=== PATIENT | male | born 1960 | race Caucasian/White ===

== ENCOUNTER 2020-06-04 11:47 | Emergency (ER) | payer SELFPAY ==
[~2020-06-04] VITALS: Ht 172.7 cm; Wt 70.3 kg
[2020-06-04 13:34] LABS: BASOPHILS ABSOLUTE AUTO 0.03 K/mm3 (0.00-0.23); BASOPHILS PERCENT AUTO 0 % (0-2); EOSINOPHILS PERCENT AUTO 0 % (0-6); Hematocrit 42.1 % (37.0-53.0); Hemoglobin 14.2 g/dL (13.5-17.5); IMMATURE GRAN ABSOLUTE AUTO 0.03 K/mm3 (0.00-0.10); IMMATURE GRAN PERCENT AUTO 0 % (0-1); LYMPHOCYTES ABSOLUTE AUTO 0.59 K/mm3 (0.84-5.20); LYMPHOCYTES PERCENT AUTO 7 % (21-46); MONOCYTES ABSOLUTE AUTO 0.85 K/mm3 (0.16-1.47); MONOCYTES PERCENT AUTO 10 % (4-13); Mean Corpuscular HGB 33.5 pg (26.0-34.0); Mean Corpuscular HGB Conc 33.7 g/dL (31.5-36.5); Mean Corpuscular Volume 99 fL (80-100); Mean Platelet Volume 9.7 fL (9.1-12.4); NEUTROPHILS ABSOLUTE AUTO 7.41 K/mm3 (1.96-9.15); NEUTROPHILS PERCENT AUTO 83 % (41-73); Platelet Count 170 K/mm3 (150-400); RDW Standard Deviation 51.1 fL (35.1-46.3); Red Blood Cell Count 4.24 M/mm3 (4.30-5.90); White Blood Cell Count 8.91 K/mm3 (4.00-11.30)
[2020-06-04 13:59] LABS: Alanine Aminotransfer (ALT/SGP 125 U/L (12-78); Albumin, Blood 3.4 g/dL (3.4-5.0); Albumin/Globulin Ratio 0.8 (0.8-1.8); Alk Phos 165 U/L (50-136); Anion Gap 14 mmol/L (6-16); Aspartate Aminotrans (AST/SGOT 132 U/L (12-37); Bilirubin, Total 1.1 mg/dL (0.1-1.0); Blood Urea Nitrogen 10 mg/dL (8-24); CO2, Blood 23 mmol/L (21-32); Calcium, Blood 9.3 mg/dL (8.5-10.1); Chloride, Blood 93 mmol/L (98-108); Creatinine, Blood 0.59 mg/dL (0.60-1.20); Glomerular Filtration Rate >60 (60-); Glucose, Blood 98 mg/dL (70-99); Potassium, Blood 4.1 mmol/L (3.5-5.5); Sodium, Blood 130 mmol/L (136-145); Total Protein, Blood 7.4 g/dL (6.4-8.2)
[2020-06-04] MEDS ORDERED: Norco 5-325 Ta1 EACH PO (21:33)
[2020-06-04] MEDS ORDERED: ONDA4ODT MM (21:33)
[2020-06-04] MEDS ORDERED: Colace250 MG PO (21:50)
[2020-06-04 21:59] LABS: Source, Urine Voided
[2020-06-04 22:05] LABS: Appearance, Urine Clear (Clear); Blood, Urine 1+ (Neg); Color, Urine Amber (P-Yellow); Glucose Qualitative, Urine Neg (Neg); Ketones, Urine 4+ (Neg); Leukocyte Esterase, Urine 1+ (Neg); Nitrite, Urine Neg (Neg); Protein, Urine 2+ (Neg); Specific Gravity, Urine 1.025 (1.003-1.022); Urobilinogen, Urine 2+ (Normal)
[2020-06-04 22:12] LABS: Bilirubin, Urine 1+ (Neg)
[2020-06-04 22:14] LABS: Bacteria Few /hpf; Red Blood Cells, Urine 0-2 /hpf (0-2); Squamous Epithelial Cells Rare /hpf (Few)
[2020-06-04 22:15] LABS: Mucus Mod (0-Heavy)
== END 2020-06-04 22:16 | disposition home or self-care (01) ==
LOC: ER 11:47
PROVIDERS: Emergency Medicine
DX: K85.20 Alcohol induced acute pancreatitis without necrosis or infection (principal); R74.01 Elevation of levels of liver transaminase levels; F17.210 Nicotine dependence, cigarettes, uncomplicated
CPT/HCPCS: 36415; 76705; 80053; 81001; 83615; 83690; 85025; 87086; 93005; 93010; 96361; 96374; 96375; 99284-25; A9270-GY; J2270; J2405; J7120

== ENCOUNTER 2021-06-27 07:57 | Emergency (ER) | payer SELFPAY ==
[~2021-06-27] VITALS: Ht 172.7 cm; Wt 63.5 kg
[~2021-06-27 07:57] MED LIST: Colace250 MG PO; Norco 5-325 Ta1 EACH PO; ONDA4ODT MM
[2021-06-27 09:46] LABS: BASOPHILS ABSOLUTE AUTO 0.02 K/mm3 (0.00-0.23); BASOPHILS PERCENT AUTO 0 % (0-2); EOSINOPHILS PERCENT AUTO 0 % (0-6); Hematocrit 35.9 % (37.0-53.0); Hemoglobin 12.1 g/dL (13.5-17.5); IMMATURE GRAN ABSOLUTE AUTO 0.03 K/mm3 (0.00-0.10); IMMATURE GRAN PERCENT AUTO 0 % (0-1); LYMPHOCYTES ABSOLUTE AUTO 0.63 K/mm3 (0.84-5.20); LYMPHOCYTES PERCENT AUTO 8 % (21-46); MONOCYTES ABSOLUTE AUTO 0.71 K/mm3 (0.16-1.47); MONOCYTES PERCENT AUTO 9 % (4-13); Mean Corpuscular HGB Conc 33.7 g/dL (31.5-36.5); Mean Corpuscular Volume 104 fL (80-100); Mean Platelet Volume 9.8 fL (9.1-12.4); NEUTROPHILS ABSOLUTE AUTO 6.59 K/mm3 (1.96-9.15); NEUTROPHILS PERCENT AUTO 83 % (41-73); Platelet Count 189 K/mm3 (150-400); RDW Coefficient Variation 13.2 % (11.7-14.2); RDW Standard Deviation 50.4 fL (35.1-46.3); Red Blood Cell Count 3.46 M/mm3 (4.30-5.90); White Blood Cell Count 7.98 K/mm3 (4.00-11.30)
[2021-06-27 10:04] LABS: Alanine Aminotransfer (ALT/SGP 43 U/L (12-78); Albumin, Blood 2.4 g/dL (3.4-5.0); Albumin/Globulin Ratio 0.6 (0.8-1.8); Alk Phos 219 U/L (50-136); Anion Gap 9 mmol/L (6-16); Aspartate Aminotrans (AST/SGOT 43 U/L (12-37); Bilirubin, Total 1.2 mg/dL (0.1-1.0); Blood Urea Nitrogen 10 mg/dL (8-24); Bun/Creatinine Ratio 15.1 (12.0-20.0); CO2, Blood 28 mmol/L (21-32); Calcium, Blood 9.4 mg/dL (8.5-10.1); Chloride, Blood 98 mmol/L (98-108); Creatinine, Blood 0.66 mg/dL (0.60-1.20); Globulin, Blood 4.1 g/dL (2.2-4.0); Glomerular Filtration Rate >60 (60-); Glucose, Blood 147 mg/dL (70-99); Sodium, Blood 135 mmol/L (136-145); Total Protein, Blood 6.5 g/dL (6.4-8.2)
[2021-06-27 10:14] LABS: International Normalized Ratio 1.01; Prothrombin Time Results 10.6 Sec (9.7-11.5)
[2021-06-27] MEDS ORDERED: CHLO25 PO (11:23)
[2021-06-27] MEDS ORDERED: OXYC5 PO (11:23)
== END 2021-06-27 13:07 | disposition home or self-care (01) ==
LOC: ER 07:57
PROVIDERS: Emergency Medicine
DX: S42.252A Displaced fracture of greater tuberosity of left humerus, initial encounter for closed fracture (principal); S42.212A Unspecified displaced fracture of surgical neck of left humerus, initial encounter for closed fracture; F10.139 Alcohol abuse with withdrawal, unspecified; I10 Essential (primary) hypertension; F17.200 Nicotine dependence, unspecified, uncomplicated; W01.0XXA Fall on same level from slipping, tripping and stumbling without subsequent striking against object, initial encounter
CPT/HCPCS: 29105; 36415; 73030; 80053; 83690; 85025; 85610; 85730; 96374; 96375; 99283-25; A9270; J1170; J2405; J7120

== ENCOUNTER 2022-03-05 11:26 | Emergency (ER) | payer OTHER ==
[~2022-03-05] VITALS: Ht 172.7 cm; Wt 63.5 kg
[~2022-03-05 11:26] MED LIST changes: +CHLO25 PO; +OXYC5 PO
[2022-03-05 12:00] LABS: BASOPHILS ABSOLUTE AUTO 0.06 K/mm3 (0.00-0.23); BASOPHILS PERCENT AUTO 1 % (0-2); EOSINOPHILS ABSOLUTE AUTO 0.08 K/mm3 (0.00-0.68); EOSINOPHILS PERCENT AUTO 1 % (0-6); Hematocrit 44.7 % (37.0-53.0); Hemoglobin 14.9 g/dL (13.5-17.5); IMMATURE GRAN ABSOLUTE AUTO 0.05 K/mm3 (0.00-0.10); IMMATURE GRAN PERCENT AUTO 0 % (0-1); LYMPHOCYTES ABSOLUTE AUTO 1.81 K/mm3 (0.84-5.20); LYMPHOCYTES PERCENT AUTO 15 % (21-46); MONOCYTES ABSOLUTE AUTO 1.32 K/mm3 (0.16-1.47); MONOCYTES PERCENT AUTO 11 % (4-13); Mean Corpuscular HGB 33.6 pg (26.0-34.0); Mean Corpuscular HGB Conc 33.3 g/dL (31.5-36.5); Mean Corpuscular Volume 101 fL (80-100); Mean Platelet Volume 9.3 fL (9.1-12.4); NEUTROPHILS ABSOLUTE AUTO 9.07 K/mm3 (1.96-9.15); NEUTROPHILS PERCENT AUTO 73 % (41-73); Platelet Count 417 K/mm3 (150-400); RDW Coefficient Variation 12.7 % (11.7-14.2); RDW Standard Deviation 47.7 fL (35.1-46.3); Red Blood Cell Count 4.44 M/mm3 (4.30-5.90); White Blood Cell Count 12.39 K/mm3 (4.00-11.30)
[2022-03-05 12:18] LABS: Albumin, Blood 2.2 g/dL (3.4-5.0); Albumin/Globulin Ratio 0.4 (0.8-1.8); Bilirubin, Total 0.6 mg/dL (0.1-1.0); Bun/Creatinine Ratio 9.3 (12.0-20.0); Calcium, Blood 8.8 mg/dL (8.5-10.1); Creatinine, Blood 0.54 mg/dL (0.60-1.20); Globulin, Blood 5.1 g/dL (2.2-4.0); Potassium, Blood 3.8 mmol/L (3.5-5.5); Total Protein, Blood 7.3 g/dL (6.4-8.2)
[2022-03-05] MEDS ORDERED: OXYC5 PO (16:03)
[2022-03-05] MEDS ORDERED: ONDA4ODT MM (16:03)
== END 2022-03-05 16:22 | disposition home or self-care (01) ==
LOC: ER 11:26
PROVIDERS: Physician Assistant
DX: K85.20 Alcohol induced acute pancreatitis without necrosis or infection (principal); K29.20 Alcoholic gastritis without bleeding; I10 Essential (primary) hypertension; F17.200 Nicotine dependence, unspecified, uncomplicated
CPT/HCPCS: 36415; 74177; 76705; 80053; 83690; 85025; 93005; 93010; 96374-59; 96375; 99284-25; J1885; J2270; J7030; Q9967

== ENCOUNTER 2022-06-11 06:26 | Inpatient (IN) | payer OTHER ==
[~2022-06-11] VITALS: Ht 172.7 cm; Wt 81.4 kg
[2022-06-11 08:42] LABS: BASOPHILS ABSOLUTE AUTO 0.05 K/mm3 (0.00-0.23); BASOPHILS PERCENT AUTO 0 % (0-2); EOSINOPHILS ABSOLUTE AUTO 0.04 K/mm3 (0.00-0.68); EOSINOPHILS PERCENT AUTO 0 % (0-6); Hematocrit 33.8 % (37.0-53.0); Hemoglobin 11.6 g/dL (13.5-17.5); IMMATURE GRAN PERCENT AUTO 1 % (0-1); LYMPHOCYTES ABSOLUTE AUTO 1.12 K/mm3 (0.84-5.20); LYMPHOCYTES PERCENT AUTO 5 % (21-46); MONOCYTES ABSOLUTE AUTO 1.85 K/mm3 (0.16-1.47); MONOCYTES PERCENT AUTO 8 % (4-13); Mean Corpuscular HGB 31.9 pg (26.0-34.0); Mean Corpuscular HGB Conc 34.3 g/dL (31.5-36.5); Mean Corpuscular Volume 93 fL (80-100); NEUTROPHILS ABSOLUTE AUTO 20.79 K/mm3 (1.96-9.15); NEUTROPHILS PERCENT AUTO 86 % (41-73); Platelet Count 525 K/mm3 (150-400); RDW Coefficient Variation 16.2 % (11.7-14.2); RDW Standard Deviation 55.4 fL (35.1-46.3); Red Blood Cell Count 3.64 M/mm3 (4.30-5.90); White Blood Cell Count 24.15 K/mm3 (4.00-11.30)
[2022-06-11 09:09] LABS: Albumin, Blood 1.4 g/dL (3.4-5.0); Albumin/Globulin Ratio 0.3 (0.8-1.8); Bilirubin, Total 0.6 mg/dL (0.1-1.0); Bun/Creatinine Ratio 14.6 (12.0-20.0); Calcium, Blood 7.8 mg/dL (8.5-10.1); Creatinine, Blood 0.48 mg/dL (0.60-1.20); Globulin, Blood 5.2 g/dL (2.2-4.0); Potassium, Blood 2.9 mmol/L (3.5-5.5); Total Protein, Blood 6.6 g/dL (6.4-8.2)
[2022-06-11 09:56] LABS: Source, Urine Clean Catch
[2022-06-11 09:59] LABS: Bilirubin, Urine Neg (Neg); Blood, Urine Neg (Neg); Glucose Qualitative, Urine Neg (Neg); Ketones, Urine 2+ (Neg); Leukocyte Esterase, Urine Neg (Neg); Nitrite, Urine Neg (Neg); Protein, Urine 1+ (Neg); Urobilinogen, Urine 1+ (Normal); pH, Urine 6.5 (5.0-8.0)
[2022-06-11 10:04] LABS: Appearance, Urine Clear (Clear); Color, Urine Yellow (P-Yellow)
--- NOTE | 2022-06-11 20:02 | NUR ---
SHIFT SUMMARY- PT ALERT AND ORIENTED, DAUGHTER AT THE BEDSIDE ASSISTED WITH THE ADMISSION PROCESS. PT MEDICATED FOR PAIN, NAUSEA AND CIWA SCORE OF 8 AT THE TIME OF ADMISSION. CIWA AT SHIFT CHANGE WAS 4. BEDSIDE REPORT COMPLETED WITH NIGHT HETAL SKAGGS. PT IN BED, CALL LIGHT INREACH NO S&S OF DISTRESS NOTED.
[2022-06-12 05:37] LABS: BASOPHILS ABSOLUTE AUTO 0.04 K/mm3 (0.00-0.23); BASOPHILS PERCENT AUTO 0 % (0-2); EOSINOPHILS ABSOLUTE AUTO 0.12 K/mm3 (0.00-0.68); EOSINOPHILS PERCENT AUTO 1 % (0-6); Hemoglobin 8.4 g/dL (13.5-17.5); IMMATURE GRAN ABSOLUTE AUTO 0.18 K/mm3 (0.00-0.10); IMMATURE GRAN PERCENT AUTO 1 % (0-1); LYMPHOCYTES PERCENT AUTO 6 % (21-46); MONOCYTES ABSOLUTE AUTO 1.35 K/mm3 (0.16-1.47); MONOCYTES PERCENT AUTO 7 % (4-13); Mean Corpuscular HGB 31.7 pg (26.0-34.0); Mean Corpuscular HGB Conc 33.6 g/dL (31.5-36.5); Mean Corpuscular Volume 94 fL (80-100); NEUTROPHILS ABSOLUTE AUTO 16.38 K/mm3 (1.96-9.15); NEUTROPHILS PERCENT AUTO 86 % (41-73); Platelet Count 362 K/mm3 (150-400); RDW Coefficient Variation 16.5 % (11.7-14.2); RDW Standard Deviation 56.1 fL (35.1-46.3); Red Blood Cell Count 2.65 M/mm3 (4.30-5.90); White Blood Cell Count 19.17 K/mm3 (4.00-11.30)
[2022-06-12 06:09] LABS: Albumin, Blood 1.8 g/dL (3.4-5.0); Albumin/Globulin Ratio 0.5 (0.8-1.8); Bilirubin, Total 0.7 mg/dL (0.1-1.0); Bun/Creatinine Ratio 10.2 (12.0-20.0); Calcium, Blood 6.7 mg/dL (8.5-10.1); Creatinine, Blood 0.49 mg/dL (0.60-1.20); Globulin, Blood 3.3 g/dL (2.2-4.0); Potassium, Blood 2.9 mmol/L (3.5-5.5); Total Protein, Blood 5.1 g/dL (6.4-8.2)
[2022-06-12 06:11] LABS: Magnesium, Blood 0.9 mg/dL (1.6-2.4)
--- NOTE | 2022-06-12 07:24 | NUR ---
SENIOR RESEARCH SCIENTIST SUMMARY: A&Ox4. PLEASANT AND COOPERATIVE WITH CARE. CALLS APPROPRIATELY AND ABLE TO COMMUNICATE NEEDS. MEDICATED Q4H LAST PRN LIBRIUM, FENTANYL FOR GODOY AND ABD PAIN AND ALTERNATING ZOFRAN/REGLAN ABD BLOATING AND NAUSEA. DAUGHTER WAS IN FOR AWHILE LAST NIGHT AND WILL BE BACK TODAY. REPORTS PT IS IRRITABLE AT BASELINE WHICH MAY CONTRIBUTE TO HIS WITHDRAWING FROM ETOH. MAG CRITICALLY LOW THSI AM; ORDERS FROM [facility]UE[facility] FOR MAGNESIUM AND K+. TELE NORMAL SINUS RHYTHM. WILL REPORT TO ONCOMING RN.
[2022-06-12 14:09] LABS: Stool Occult Blood Guaiac 1 Pos (Neg)
[2022-06-12 15:23] LABS: Hematocrit 26.4 % (37.0-53.0)
[2022-06-12 15:46] LABS: Bun/Creatinine Ratio 9.3 (12.0-20.0); Calcium, Blood 7.2 mg/dL (8.5-10.1); Creatinine, Blood 0.43 mg/dL (0.60-1.20); Potassium, Blood 3.5 mmol/L (3.5-5.5)
--- NOTE | 2022-06-12 19:46 | NUR ---
SHIFT SUMMARY: PT A&O X4, PLEASANT AND COOPERATIVE. PT HAS WEAKNESS WITH TRANSFERING AND CONSTANT ABDOMINAL PAIN. PT PAIN MANAGED WITH PRN PAIN MEDICATION THROUGHOUT SHIFT. PT HAD LOOSE TARRY STOOLS X2. PROVIDER CONTACTED AND ORDERED STOOL SAMPLE. STOOL POSITIVE FOR BLOOD, GI CONSULATION ORDERED AND GI PROVIDER ASSESSED PT. PT NPO BY MIDNIGHT TO PREP FOR ENDOSCOPY IN MORNING. PT ABLE TO AMBULATE TO BATHROOM 1 PERSON ASSIST WITH FWW AND GAIT BELT. PT HAD FAMILY AT BEDSIDE THROUGHOUT THE SHIFT. PT IN BED WITH CALL LIGHT WITHIN REACH.
--- NOTE | 2022-06-13 06:03 | NUR ---
MOTION PICTURE SET WORKER SUMMARY PT TO HAVE GI SCOPE LATER TODAY, HAS BEEN NPO SINCE MIDNIGHT. SOME TREMORS NOTED WELL SOME DISORIENTATION AT TIMES, PT MEDICATED WITH LIBRIUM FOR THESE SYMPTOMS. PT DID HAVE A FALL WHILE TRYING TO GET TO BSC BY WITHOUT ASSIST. PRE PRESS MANAGER HAD FORGOT TO RESET ALARM AFTER GETTING UP PREVIOUSLY. PT SUSTAINED NO INJURIES AND WAS ABLE TO GET BACK TO BED EASILY, VITALS TAKEN AT THAT TIME STABLE. CONTINUING IV FLUIDS AND ABX. WILL CONTINUE TO MONITOR.
--- NOTE | 2022-06-13 07:36 | NUR ---
POST FALL ASSESSMENT ATTEMPTED TO DO POST FALL ASSESSMENT IN PROCESS INTERVENTIONS. MEDITECH MALFUNCTIONED DURING PROCESS AND NOW NOT ALLOWING INTERVENTION TO BE PERFORMED.
[2022-06-13 08:13] LABS: BASOPHILS ABSOLUTE AUTO 0.04 K/mm3 (0.00-0.23); BASOPHILS PERCENT AUTO 0 % (0-2); EOSINOPHILS ABSOLUTE AUTO 0.03 K/mm3 (0.00-0.68); EOSINOPHILS PERCENT AUTO 0 % (0-6); Hematocrit 25.6 % (37.0-53.0); Hemoglobin 8.4 g/dL (13.5-17.5); IMMATURE GRAN ABSOLUTE AUTO 0.26 K/mm3 (0.00-0.10); IMMATURE GRAN PERCENT AUTO 1 % (0-1); LYMPHOCYTES ABSOLUTE AUTO 0.83 K/mm3 (0.84-5.20); LYMPHOCYTES PERCENT AUTO 5 % (21-46); MONOCYTES ABSOLUTE AUTO 1.01 K/mm3 (0.16-1.47); MONOCYTES PERCENT AUTO 6 % (4-13); Mean Corpuscular HGB 31.1 pg (26.0-34.0); Mean Corpuscular HGB Conc 32.8 g/dL (31.5-36.5); Mean Corpuscular Volume 95 fL (80-100); Mean Platelet Volume 8.8 fL (9.1-12.4); NEUTROPHILS ABSOLUTE AUTO 16.14 K/mm3 (1.96-9.15); NEUTROPHILS PERCENT AUTO 88 % (41-73); Platelet Count 378 K/mm3 (150-400); RDW Coefficient Variation 16.4 % (11.7-14.2); RDW Standard Deviation 56.4 fL (35.1-46.3); White Blood Cell Count 18.31 K/mm3 (4.00-11.30)
[2022-06-13 08:43] LABS: Albumin, Blood 1.5 g/dL (3.4-5.0); Albumin/Globulin Ratio 0.5 (0.8-1.8); Bilirubin, Total 0.6 mg/dL (0.1-1.0); Bun/Creatinine Ratio 6.5 (12.0-20.0); Calcium, Blood 7.4 mg/dL (8.5-10.1); Creatinine, Blood 0.47 mg/dL (0.60-1.20); Globulin, Blood 3.2 g/dL (2.2-4.0); Potassium, Blood 3.1 mmol/L (3.5-5.5); Total Protein, Blood 4.7 g/dL (6.4-8.2)
--- NOTE | 2022-06-13 12:59 | NUR ---
History, Chart, Medications and Allergies reviewed before start of procedure. LS DIMINISHED IN BASES. COURSE COUGH NOTED BUT CLEARS WHEN COUGHS. PT C/O ABD PAIN T/O. PT ABD IS TENDER TO TOUCH ABD, FIRM AND DISTENDED. Patient confirms NPO status and agrees with scheduled surgery. Pre-Op teaching done. Pt verbalizes understanding.
--- NOTE | 2022-06-13 13:16 | NUR ---
06/13/22 1316 Nanci Mccord History, Chart, Medications and Allergies reviewed before start of procedure. MONITOR INTACT WITH CONTINUOUS PULSE OXIMETRY AND INTERMITTENT BP. 3-LEAD EKG REVIEWED WITH PHYSICIAN PRIOR TO START OF PROCEDURE. O2 VIA N/C INTACT THROUGHOUT SEDATION/PROCEDURE. Bite Block Placed. ANSETHESIA PROVIDED BY DR. PHELPS. LIDO SPRAYED TO BACK OF THROAT PRIOR TO PROCEDURE PER ORDERS.
--- NOTE | 2022-06-13 19:40 | NUR ---
REPORT IS PT HAS A RIGHT LE DVT, AND PT WAS GUAIC POSITIVE IN ER, AND HAD AN ENDOSCOPE TODAY, WITH NOTATION OF A DUODENAL ULCER. WILL REPORT OFF TO ONCOMING SHIFT PT DOES NOT HAVE PROPHYLAXIS CURRENTLY SCHEDULED. PT HAS BEEN IMPULSIVE, CLIMBING OUT OF BED, BED ALARM ON. PT THINKS HE NEEDS TO URINATE - WILL CONTINUE TO MONITOR - CONDOM CATH IN PLACE DRAINING TEA COLORED URINE. FAMILY PRESENT. CALL LIGHT WITHIN REACH. BED IN LOW POSITION. FLUIDS AT BEDSIDE.
--- NOTE | 2022-06-13 19:44 | NUR ---
SHIFT SUMMARY: PT A&O X3-4, PLEASANT AND COOPERATIVE. PT HAD MODERATE ABDOMINAL PAIN THROUGHOUT SHIFT. PT RECEVIED PAIN MEDICATION PER EMAR PROTOCOL. PT HAD ENDOSCOPY AT 1230. PT RETURNED GROGGY AND CONFUSED. PT REQUIRED 2 PERSON ASSIST THROUGHOUT SHIFT. PT HAD STABLE HR MOST OF THE SHIFT, LOW HR POST ENDOSCOPY. PT MENTATION IMPROVED AT THE END OF SHIFT. PT FAMILY AT BEDSIDE THROUGHOUT THE SHIFT HELPING WITH PT CARE. PT HAD INCONTIENT LARGE LOOSE GREEN BM. PT HAS A CONDUM CATHETER PLACED DUE TO WEAKNESS AND SOB ON EXTERTION. PT IN BED WITH CALL LIGHT WITHIN REACH AND BED ALARM SET.
[2022-06-14 05:55] LABS: BASOPHILS ABSOLUTE AUTO 0.05 K/mm3 (0.00-0.23); BASOPHILS PERCENT AUTO 0 % (0-2); EOSINOPHILS ABSOLUTE AUTO 0.13 K/mm3 (0.00-0.68); EOSINOPHILS PERCENT AUTO 1 % (0-6); Hematocrit 24.4 % (37.0-53.0); IMMATURE GRAN ABSOLUTE AUTO 0.23 K/mm3 (0.00-0.10); IMMATURE GRAN PERCENT AUTO 1 % (0-1); LYMPHOCYTES ABSOLUTE AUTO 1.11 K/mm3 (0.84-5.20); LYMPHOCYTES PERCENT AUTO 7 % (21-46); MONOCYTES ABSOLUTE AUTO 1.23 K/mm3 (0.16-1.47); MONOCYTES PERCENT AUTO 8 % (4-13); Mean Corpuscular HGB 30.9 pg (26.0-34.0); Mean Corpuscular HGB Conc 32.8 g/dL (31.5-36.5); Mean Corpuscular Volume 94 fL (80-100); Mean Platelet Volume 9.1 fL (9.1-12.4); NEUTROPHILS ABSOLUTE AUTO 13.25 K/mm3 (1.96-9.15); NEUTROPHILS PERCENT AUTO 83 % (41-73); Platelet Count 406 K/mm3 (150-400); RDW Standard Deviation 58.3 fL (35.1-46.3); Red Blood Cell Count 2.59 M/mm3 (4.30-5.90)
--- NOTE | 2022-06-14 06:42 | NUR ---
SHIFT SUMMARY - PT HAS HAD VERY OCCASIONIAL CONFUSED STATEMENTS DURING THE NIGHT - HAS MUMBLED SPEECH. PT'S SKIN COLOR IS DUSKY. PT HAS BEEN ABLE TO MAKES HIS NEEDS KNOWN, HOWEVER AT TIMES HIS SPEECH IS DIFFICULT TO UNDERSTAND. ARMAAN, SON SPENT THE NIGHT, AND ASSISTED WITH INTERPRETING HIS SPEECH AT TIMES. PT DOESN'T HAVE PROPHYLAXIS ORDER, HOWEVER PT HAD A BLEEDING ULCER, AND A REPORTED RLE DVT - SEE IMAGING & ENDOSCOPE REPORT FROM YESTERDAY - I WILL REPORT THIS OFF TO ONCOMING SHIFT. CIWA WNL THROUGHOUT THE NIGHT. MEDICATED X1 FOR PAIN. WILL REPORT OFF TO ONCOMING SHIFT. CALL LIGHT WITHIN REACH. BED IN LOW POSITION - BED ALARM ON FOR SAFETY. PT TOLERATED SMALL SIPS OF WATER LAST NOC.
[2022-06-14 08:49] LABS: Albumin, Blood 1.3 g/dL (3.4-5.0); Albumin/Globulin Ratio 0.4 (0.8-1.8); Bilirubin, Total 0.6 mg/dL (0.1-1.0); Bun/Creatinine Ratio 8.9 (12.0-20.0); Calcium, Blood 7.2 mg/dL (8.5-10.1); Creatinine, Blood 0.45 mg/dL (0.60-1.20); Globulin, Blood 3.4 g/dL (2.2-4.0); Potassium, Blood 2.7 mmol/L (3.5-5.5); Total Protein, Blood 4.7 g/dL (6.4-8.2)
[2022-06-14 15:16] LABS: Bun/Creatinine Ratio 7.9 (12.0-20.0); Calcium, Blood 7.3 mg/dL (8.5-10.1); Creatinine, Blood 0.51 mg/dL (0.60-1.20)
--- NOTE | 2022-06-14 19:53 | NUR ---
SHIFT SUMMARY: PT DROWSEY AND CONFUSED. PT SLEPT THROUGHOUT THE SHIFT, OCASSIONALLY GETTING UP TO THE BSC FOR BM. PT BM DARK, GREEN SLUDGE, DR. GASTELUM CONTACTED. H.PYLORI STOOL SAMPLE ORDERED, COLLECTED AND SENT TO LAB. PT POTASSIUM LEVELS 2.7, DR. GASTELUM ORDERED FOUR BAGS OF 20MEQ IV POTASSIUM CHLORIDE. PT RECEVIED 40MEQ ON DAY SHIFT, DR. GASTELUM NOTIFED OF DELAY IN MEDICATION ADMINISTRATION AND WILL NOTIFED ACCOUNT SERVICES MANAGER PROVIDER AND SPINNER CAP FRAME PASSED ON REPORT TO ACCOUNT SERVICES MANAGER NURSE. PT HAD ELEVATED HR 127 AND RR 24 AT 1556, DR. GASTELUM NOTIFIED OF PT SYMPTOMS AND NOTIFED OF TELE REPORT OF SMALL QRS COMPLEX NOTED. PT EDEMA HAS INCREASED, DR. GASTELUM NOTIFED AND ORDERS MECHANICAL LEG COMPRESSIONS. PT CIWA SCORES STABLE, LIBRUM GIVEN TWICE DURING SHIFT. PT CONTIUNED TO BE DROWSEY AND CONFUSED AT TIMES. PT FAMILY AT BEDSIDE THROUGHOUT THE SHIFT. PT IN BED WITH CALL LIGHT WITHIN REACH AND BED ALARM ON.
[2022-06-15 00:30] LABS: Bun/Creatinine Ratio 10.8 (12.0-20.0); Calcium, Blood 7.3 mg/dL (8.5-10.1); Creatinine, Blood 0.56 mg/dL (0.60-1.20); Potassium, Blood 3.5 mmol/L (3.5-5.5)
--- NOTE | 2022-06-15 05:45 | NUR ---
PT AGITATED OVERNIGHT, UNCOOPERATIVE AND NON COMPLIANT, OTHERWISE NO NEW ISSUES, ONE LOOSE BM, UO 175 CC, ORAL CARE GIVEN, PT CHOKED ON WATER SO THAT WAS PUT ON HOLD UNTIL HE CAN BE EVALUATED, PAIN TREATED ONE TIME WITH FENTANYL AT BEGINNING OF SHIFT, CIWA'S 4-5, PT REFUSES MEDS AND LAB DRAW THIS AM UNTIL HE TALKS TO DAUGHTER, ATTEMPTED TO CALL DAUGHTER AT NUMBER LEFT ON BOARD AND GOT VM, CALL LIGHT IN REACH, PT HAS CELL PHONE WITH HIM IN BED, BED ALARM IS ON
[2022-06-15 08:38] LABS: BASOPHILS ABSOLUTE AUTO 0.08 K/mm3 (0.00-0.23); BASOPHILS PERCENT AUTO 0 % (0-2); EOSINOPHILS ABSOLUTE AUTO 0.13 K/mm3 (0.00-0.68); EOSINOPHILS PERCENT AUTO 1 % (0-6); Hematocrit 25.1 % (37.0-53.0); Hemoglobin 8.5 g/dL (13.5-17.5); IMMATURE GRAN ABSOLUTE AUTO 0.44 K/mm3 (0.00-0.10); IMMATURE GRAN PERCENT AUTO 2 % (0-1); LYMPHOCYTES ABSOLUTE AUTO 1.06 K/mm3 (0.84-5.20); LYMPHOCYTES PERCENT AUTO 5 % (21-46); MONOCYTES ABSOLUTE AUTO 1.48 K/mm3 (0.16-1.47); MONOCYTES PERCENT AUTO 7 % (4-13); Mean Corpuscular HGB 31.7 pg (26.0-34.0); Mean Corpuscular HGB Conc 33.9 g/dL (31.5-36.5); Mean Corpuscular Volume 94 fL (80-100); Mean Platelet Volume 8.8 fL (9.1-12.4); NEUTROPHILS ABSOLUTE AUTO 16.96 K/mm3 (1.96-9.15); NEUTROPHILS PERCENT AUTO 84 % (41-73); Platelet Count 437 K/mm3 (150-400); RDW Coefficient Variation 17.3 % (11.7-14.2); RDW Standard Deviation 58.4 fL (35.1-46.3); Red Blood Cell Count 2.68 M/mm3 (4.30-5.90); White Blood Cell Count 20.15 K/mm3 (4.00-11.30)
[2022-06-15 09:04] LABS: Bun/Creatinine Ratio 11.5 (12.0-20.0); Calcium, Blood 7.1 mg/dL (8.5-10.1); Creatinine, Blood 0.52 mg/dL (0.60-1.20); Magnesium, Blood 1.3 mg/dL (1.6-2.4); Potassium, Blood 3.4 mmol/L (3.5-5.5)
[2022-06-15 18:17] LABS: BASOPHILS ABSOLUTE AUTO 0.08 K/mm3 (0.00-0.23); BASOPHILS PERCENT AUTO 0 % (0-2); EOSINOPHILS ABSOLUTE AUTO 0.26 K/mm3 (0.00-0.68); EOSINOPHILS PERCENT AUTO 1 % (0-6); Hematocrit 27.7 % (37.0-53.0); Hemoglobin 9.4 g/dL (13.5-17.5); IMMATURE GRAN ABSOLUTE AUTO 0.48 K/mm3 (0.00-0.10); IMMATURE GRAN PERCENT AUTO 3 % (0-1); LYMPHOCYTES ABSOLUTE AUTO 1.51 K/mm3 (0.84-5.20); LYMPHOCYTES PERCENT AUTO 8 % (21-46); MONOCYTES PERCENT AUTO 7 % (4-13); Mean Corpuscular HGB 31.4 pg (26.0-34.0); Mean Corpuscular HGB Conc 33.9 g/dL (31.5-36.5); Mean Corpuscular Volume 93 fL (80-100); Mean Platelet Volume 8.9 fL (9.1-12.4); NEUTROPHILS PERCENT AUTO 80 % (41-73); Platelet Count 470 K/mm3 (150-400); RDW Coefficient Variation 17.3 % (11.7-14.2); Red Blood Cell Count 2.99 M/mm3 (4.30-5.90); White Blood Cell Count 19.03 K/mm3 (4.00-11.30)
[2022-06-15 18:48] LABS: Bun/Creatinine Ratio 10.5 (12.0-20.0); Calcium, Blood 7.5 mg/dL (8.5-10.1); Creatinine, Blood 0.57 mg/dL (0.60-1.20)
--- NOTE | 2022-06-15 18:59 | NUR ---
SHIFT SUMMARY: PT A/O X 2-3. DISORIENTED AT TIMES. PT PLEASANT AND COOPERATIVE WITH FAMILY PRESENT. PT DID NOT TOLERATE FULL LIQUID DIET THIS EVENING. HE WOULD NOT EVEN ATTEMPT TO TRY TO HAVE ANY ORAL INTAKE NOTHING SOUNDED APPETIZING ONCE PRESENTED WITH OPTIONS. PT HAS HAD MINIMAL URINE OUTPUT THROUGHOUT THE DAY. URINE IS CLOUDY AND SABINE COLORED. PT POTASSIUM WAS 3.0 AT 5:30 PM. ORDER RECEIVED FROM DR. EARL FOR IV POTASSIUM 60 MEQ. PT DID NOT TOLERATE ORAL MEDICATIONS TODAY. PT CONTINUES TO C/O LLQ ABD PAIN WHICH HAS BEEN MANAGED WITH FENTANYL 50 MCG.
[2022-06-16 06:24] LABS: Bun/Creatinine Ratio 11.6 (12.0-20.0); Calcium, Blood 7.3 mg/dL (8.5-10.1); Creatinine, Blood 0.52 mg/dL (0.60-1.20)
[2022-06-16 06:25] LABS: Potassium, Blood 5.2 mmol/L (3.5-5.5)
[2022-06-16 06:49] LABS: BASOPHILS ABSOLUTE AUTO 0.05 K/mm3 (0.00-0.23); BASOPHILS PERCENT AUTO 0 % (0-2); EOSINOPHILS ABSOLUTE AUTO 0.08 K/mm3 (0.00-0.68); EOSINOPHILS PERCENT AUTO 1 % (0-6); Hematocrit 24.1 % (37.0-53.0); Hemoglobin 8.2 g/dL (13.5-17.5); IMMATURE GRAN ABSOLUTE AUTO 0.69 K/mm3 (0.00-0.10); IMMATURE GRAN PERCENT AUTO 4 % (0-1); LYMPHOCYTES ABSOLUTE AUTO 0.44 K/mm3 (0.84-5.20); LYMPHOCYTES PERCENT AUTO 3 % (21-46); MONOCYTES ABSOLUTE AUTO 0.93 K/mm3 (0.16-1.47); MONOCYTES PERCENT AUTO 6 % (4-13); Mean Corpuscular HGB 31.9 pg (26.0-34.0); Mean Corpuscular Volume 94 fL (80-100); Mean Platelet Volume 8.9 fL (9.1-12.4); NEUTROPHILS ABSOLUTE AUTO 14.15 K/mm3 (1.96-9.15); NEUTROPHILS PERCENT AUTO 87 % (41-73); Platelet Count 429 K/mm3 (150-400); RDW Coefficient Variation 17.6 % (11.7-14.2); RDW Standard Deviation 60.5 fL (35.1-46.3); Red Blood Cell Count 2.57 M/mm3 (4.30-5.90); White Blood Cell Count 16.34 K/mm3 (4.00-11.30)
--- NOTE | 2022-06-16 07:41 | NUR ---
AT 0500, PT WITH HR OF 120-130, RESP: 64. CIWA SCORE OF 8. 2MG ATIVAN GIVEN. SPO2 [address] TRAN ON PT'S STATUS. ASKED MD FOR ORDER FOR O2 AND BREATHING TX AND RECEIVED ORDERS.
--- NOTE | 2022-06-16 07:46 | NUR ---
AT 0609, NOTIFIED DR TRAN THAT PT'S HR STILL IN THE 130S. ALSO INFORMED HIM THAT PT MIGHT HAVE ASPIRATED WHEN HE TRIED TAKING HIS XARELTO WITH WATER AND HAD STARTED COUGHING NONSTOP ALL NIGHT. ASKED DR TRAN IF WE COULD GET PORTABLE CHEST X RAY FOR PT. DR. TRAN ORDERED 5MG LOPRESSOR IV X 1, AND FOR CHEST X RAY.
--- NOTE | 2022-06-16 09:25 | NUR ---
LATE ENTRY: ON ARRIVAL THIS AM PT WAS IN RESPIRATORY DISTRESS WITH CONSTANT WEAK COUGH, AWAKE BUT DID RESPOND TO QUESTIONS. O2 SATS WERE DIPPING FROM LOW 90'S TO MID 80'S. PLACED PT ON NON REBREATHER AT 10 LPM AND SATS WERE MAINTAINED 96-98%. DR. MOORE NOTIFIED OF CONCERNS. DR. MOORE DID COME AND EVALUATE PT REQUESTED. NOC RN REPORTED PT HAD ASPIRATED ON XARELTO GIVEN LAST NIGHT AND HAD COUGHED ALL NIGHT AND STARTED HAVING TREMORS SO SHE GAVE ATIVAN X [address] BOYER ALSO NOTIFIED OF PT SYMPTOMS AND CONCERNS. ORDER RECEIVED TO GIVE LASIX 20 MG IV AND LOVENOX WHICH WAS GIVEN. ORDER RECEIVED TO TRANSFER PT TO PCU. PT HAD TO GO TO ICU 13 DUE TO NO ROOMS IN PCU. REPORT GIVEN TO ROSARIO IN ICU AND PT TRANSFERRED ON 10 LPM HIGH FLOW. DAUGHTER PRESENT AND AWARE OF CONCERNS AND STATUS.
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
--- NOTE | 2022-06-16 11:18 | NUR ---
PT TRANSFERED FROM MEDICAL FLOOR THIS AM. UPON ARRIVAL PT WOULD MAKE EYE CONTACT AND NOD YES TO SOME QUESTIONS BUT THEN WOULD SPACE OFF. WAS ON 10L HFNC BUT QUICKLY PLACED ON NRB AT 15L. PT HAD NO GAG REFLEX, RESP 40 PER MINUTE, AND SPO2 77%. LS RHONCHI T/O. 4+ PITTING EDEMA IN FEET. IVF STOPPED. DAUGHTER ANNIA WITH PT, SHE SPOKE WITH PT AND THEY AGREED INTUBATION WOULD BE OK. DR. JACOBO AT BEDSIDE STAT. PT INTUBATED AFTER 20MG OF ETOMIDATE. DR. JACOBO ALSO PLACED CENTRAL LINE TO AKJ. OG WAS PLACED. AFTER CXR DR. JACOBO INSTRUCTED TO ADVANCE OG TUBE 5CM AND THIS WAS DONE. CONFIRMED PLACEMENT WITH AUSCULATION. PT IS ON PROPOFOL FOR SEDATION. ONE DOSE OF FENTANYL GIVEN SEDATION ADJUNCT. PALLIATIVE CARE RN SPOKE WITH STEPHANE MILNER. DR. JACOBO UPDATING FAMILY NOW.
[2022-06-16 12:08] LABS: pH Blood Venous 7.32 (7.34-7.37)
[2022-06-16 12:09] LABS: Bicarbonate Venous 17.8 mmol/L (24.0-30.0); PCO2 Venous 35.1 mmHg (38-42)
[2022-06-16 14:26] LABS: Bun/Creatinine Ratio 10.4 (12.0-20.0); Calcium, Blood 7.1 mg/dL (8.5-10.1); Creatinine, Blood 0.67 mg/dL (0.60-1.20); Potassium, Blood 3.4 mmol/L (3.5-5.5)
--- NOTE | 2022-06-16 17:34 | NUR ---
SUMMARY PT TRANSFERED FROM MEDICAL FLOOR TODAY. INTUBATED NOT LONG AFTER ARRIVAL TO ICU (SEE PREVIOUS NOTE). PT IS SEDATED WITH PROPOFOL AND IS ON LEVOPHED. FENTANYL GIVEN WHEN PT BECOMES RESTLESS ON THE VENT WITH GOOD RESULTS. PT IS EDEMATOUS IN BILAT FEET 4+ AND HIPS 3+. WAS GIVEN LASIX TODAY. FIO2 DOWN TO 40% NOW, DR. JACOBO LEAVING OTHER VENT SETTINGS UNCHANGED. ANNIA DAUGHTER AT BEDSIDE, SHE IS HELPING KEEP FAMILY UPDATED.
[2022-06-16 18:47] LABS: BASOPHILS ABSOLUTE AUTO 0.04 K/mm3 (0.00-0.23); BASOPHILS PERCENT AUTO 0 % (0-2); EOSINOPHILS ABSOLUTE AUTO 0.01 K/mm3 (0.00-0.68); EOSINOPHILS PERCENT AUTO 0 % (0-6); Hematocrit 24.9 % (37.0-53.0); Hemoglobin 7.9 g/dL (13.5-17.5); IMMATURE GRAN PERCENT AUTO 4 % (0-1); LYMPHOCYTES ABSOLUTE AUTO 1.26 K/mm3 (0.84-5.20); LYMPHOCYTES PERCENT AUTO 7 % (21-46); MONOCYTES ABSOLUTE AUTO 1.06 K/mm3 (0.16-1.47); MONOCYTES PERCENT AUTO 6 % (4-13); Mean Corpuscular HGB 30.3 pg (26.0-34.0); Mean Corpuscular HGB Conc 31.7 g/dL (31.5-36.5); Mean Corpuscular Volume 95 fL (80-100); NEUTROPHILS PERCENT AUTO 83 % (41-73); Platelet Count 452 K/mm3 (150-400); RDW Coefficient Variation 17.6 % (11.7-14.2); RDW Standard Deviation 60.1 fL (35.1-46.3); Red Blood Cell Count 2.61 M/mm3 (4.30-5.90); White Blood Cell Count 18.77 K/mm3 (4.00-11.30)
[2022-06-16 19:13] LABS: Bun/Creatinine Ratio 12.3 (12.0-20.0); Calcium, Blood 7.1 mg/dL (8.5-10.1); Creatinine, Blood 0.65 mg/dL (0.60-1.20); Potassium, Blood 3.5 mmol/L (3.5-5.5)
--- NOTE | 2022-06-16 19:34 | NUR ---
ASSUMED CARE OF PT AT 1900 PT INTUBATED AND SEDATED. FAMILY MEMBERS AT BEDSIDE AT THIS TIME. RESPIRATORY THERAPY IN ROOM VENT SETTINGS AT 16/410/10/40%. LEVO RUNNING AT 10 MCG. PROPOFOL AT 45MCG. OAKLEY RUNNING TO GRAVITY DRAIN. BILATERAL UPPER EXTREMETY RESTRAINTS IN PLACE WITH NO APPARANT ISSUES AT THIS TIME. SEE ASSESSMENT FOR FURTHER INFORMATION.
[2022-06-17 04:06] LABS: Alanine Aminotransfer (ALT/SGP 14 U/L (12-78); Albumin, Blood 1.1 g/dL (3.4-5.0); Albumin/Globulin Ratio 0.3 (0.8-1.8); Alk Phos 127 U/L (50-136); Anion Gap 8 mmol/L (6-16); Aspartate Aminotrans (AST/SGOT 29 U/L (12-37); Bilirubin, Total 0.3 mg/dL (0.1-1.0); Blood Urea Nitrogen 9 mg/dL (8-24); Bun/Creatinine Ratio 15.6 (12.0-20.0); CO2, Blood 20 mmol/L (21-32); Calcium, Blood 7.2 mg/dL (8.5-10.1); Chloride, Blood 117 mmol/L (98-108); Creatinine, Blood 0.58 mg/dL (0.60-1.20); Globulin, Blood 3.7 g/dL (2.2-4.0); Glomerular Filtration Rate 110 (60-); Glucose, Blood 207 mg/dL (70-99); Magnesium, Blood 1.6 mg/dL (1.6-2.4); Phosphorus, Blood 2.2 mg/dL (2.5-4.9); Potassium, Blood 2.9 mmol/L (3.5-5.5); Sodium, Blood 145 mmol/L (136-145); Total Protein, Blood 4.8 g/dL (6.4-8.2); Triglycerides 140 mg/dL (30-160)
[2022-06-17 04:07] LABS: BASOPHILS ABSOLUTE AUTO 0.06 K/mm3 (0.00-0.23); BASOPHILS PERCENT AUTO 0 % (0-2); EOSINOPHILS ABSOLUTE AUTO 0.14 K/mm3 (0.00-0.68); EOSINOPHILS PERCENT AUTO 1 % (0-6); Hematocrit 25.4 % (37.0-53.0); Hemoglobin 8.2 g/dL (13.5-17.5); IMMATURE GRAN ABSOLUTE AUTO 0.57 K/mm3 (0.00-0.10); IMMATURE GRAN PERCENT AUTO 4 % (0-1); LYMPHOCYTES ABSOLUTE AUTO 2.04 K/mm3 (0.84-5.20); LYMPHOCYTES PERCENT AUTO 13 % (21-46); MONOCYTES ABSOLUTE AUTO 0.96 K/mm3 (0.16-1.47); MONOCYTES PERCENT AUTO 6 % (4-13); Mean Corpuscular HGB 30.3 pg (26.0-34.0); Mean Corpuscular HGB Conc 32.3 g/dL (31.5-36.5); Mean Corpuscular Volume 94 fL (80-100); Mean Platelet Volume 9.1 fL (9.1-12.4); NEUTROPHILS ABSOLUTE AUTO 12.11 K/mm3 (1.96-9.15); NEUTROPHILS PERCENT AUTO 76 % (41-73); Platelet Count 493 K/mm3 (150-400); RDW Coefficient Variation 17.6 % (11.7-14.2); RDW Standard Deviation 59.1 fL (35.1-46.3); Red Blood Cell Count 2.71 M/mm3 (4.30-5.90); White Blood Cell Count 15.88 K/mm3 (4.00-11.30)
--- NOTE | 2022-06-17 05:18 | NUR ---
END OF SHIFT SUMMARY PT SEDATED AND INTUBATED. PROP AT 35MCG/KG/MIN. LEVO AT 7MCG/MIN. 40 MEQ POTASSIUM RUNNING AT THIS TIME. TKO @10 MLS/HR. VENT AT 16/410/10/40%. MINIMAL SECRETTIONS AT THIS TIME. BP SYST 90'S/60'S WITH SR. HR 80'S. 4+DEEP PITTING BLE. 3+ DEEP BUE. 2 DEPENDENT ON TORSO AND HIP AREAS. OAKLEY DRAINING TO GRAVITY WITH DARK YELLOW URINE. 800MLS URINE OUT THIS SHIFT. NO BM THIS SHIFT. WILL CONTINUE TO MONITOR UNTIL REPORT GIVEN TO AM NURSE.
[2022-06-17 09:32] LABS: Base Excess Venous -6.2 mmol/L; Bicarbonate Venous 19.8 mmol/L (24.0-30.0); PCO2 Venous 32.1 mmHg (38-42); pH Blood Venous 7.38 (7.34-7.37)
--- NOTE | 2022-06-17 18:43 | NUR ---
SUMMARY PT INTUBATED AND SEDATED WITH PROPOFOL. TURNED PROPOFOL DOWN FOR AWHILE BUT PT STARTS COUGHING AND RESP RATE GOES UP TO 40. FENTANYL AND ATIVAN GIVEN FOR SEDATION ADJUNCT AND PROPOFOL TURNED BACK UP. TRIED A SLOWER RATE OF PROPOFOL THAN PRIOR DOSE BUT PT DOES NOT TOLERATE. PEEP DOWN TO 5 TODAY. TOLERATING TUBE FEED, INCREASED TO 25ML/HR THIS AFTERNOON. NO LASIX TODAY BECAUSE POTASSIUM HAS BEEN PERSISTENTLY LOW. DAUGHTER ANNIA AT BEDSIDE MOST OF THE DAY AND HAS BEEN UPDATING FAMILY.
--- NOTE | 2022-06-17 22:36 | NUR ---
ASSUMED CARE AT 1900 PATIENT INTUBATED AND SEDATED ON PROPOFOL. PRN ATIVAN AND FENTANYL GIVEN FOR SEDATION ADJUNCT. 02 SATS 96% ON VENT AC VC 16/400/5/40%, RR 20s-38. LS COARSE TO DIMINISHED. HR ST 108, LEVOPHED INF. OG WITH VITAL HP INF AT 25 MLS/HR, GOAL RATE 45 MLS/HR, WILL ADVANCE PER ORDERS, 30 MLS FLUSHES Q4 HOURS. RISIDUALS 5 MLS. OAKLEY PATENT AND DRAINING TO GRAVITY. PATIENT REPOSITIONED AND ORAL CARE COMPLETED. SEE SHIFT ASSESSMENT FOR MORE INFORMATION.
[2022-06-18 05:30] LABS: Hemoglobin 8.1 g/dL (13.5-17.5); Mean Corpuscular HGB 31.2 pg (26.0-34.0); Mean Corpuscular HGB Conc 33.8 g/dL (31.5-36.5); Mean Corpuscular Volume 92 fL (80-100); Mean Platelet Volume 9.3 fL (9.1-12.4); NRBC ABSOLUTE 0.06 K/mm3 (0.00-0.02); NRBC Auto 0.6 /100 WBC (0.0-0.2); Platelet Count 335 K/mm3 (150-400); RDW Coefficient Variation 17.9 % (11.7-14.2); RDW Standard Deviation 59.1 fL (35.1-46.3); White Blood Cell Count 10.74 K/mm3 (4.00-11.30)
[2022-06-18 05:45] LABS: International Normalized Ratio 1.14; Prothrombin Time Results 11.9 Sec (9.7-11.5)
--- NOTE | 2022-06-18 05:45 | NUR ---
SHIFT SUMMARY PATIENT REMAINS INTUBATED AND SEDATED ON PROPOFOL. PROPOFOL INCREASED AND PRN MEDICATIONS GIVEN FOR VENT COMPLIANCE, PATIENT STACKS BREATHS AND CONTINUOUSLY COUGHS. 02 SATS 93% ON VENT AC VC 16/410/5/45%, RR 30s-40s, LS COARSE-DIMINISHED. HR ST 100-120, BP STABLE. OG WITH TUBE FEED VITAL HP TITRATED U TO 35 MLS/HR AT APPROX 0500, RISIDUALS 5 MLS. OAKLEY PATENT AND DRAINING TO GRAVITY. PATIENT REPOSITIONED Q2 HOURS AND BEDBATH DONE.
[2022-06-18 05:58] LABS: BAND PERCENT MAN 3 % (0-8); BASOPHILS PERCENT MAN 0 % (0-2); EOSINOPHILS PERCENT MAN 1 % (0-6); LYMPHOCYTES ABSOLUTE MAN 0.32 K/mm3 (0.84-5.20); LYMPHOCYTES PERCENT MAN 3 % (21-46); MONOCYTES ABSOLUTE MAN 0.32 K/mm3 (0.16-1.47); MONOCYTES PERCENT MAN 3 % (4-13); MYELOCYTE ABSOLUTE MAN 0.42 K/mm3 (0.00-0.00); MYELOCYTE PERCENT MAN 4 % (0-0); NEUTROPHILS ABSOLUTE MAN 9.55 K/mm3 (1.96-9.15); SEG NEUTROPHILS PERCENT MAN 86 % (41-73); TOTAL CELLS COUNTED 100
[2022-06-18 06:07] LABS: Magnesium, Blood 1.5 mg/dL (1.6-2.4)
[2022-06-18 06:08] LABS: Albumin, Blood 1.1 g/dL (3.4-5.0); Albumin/Globulin Ratio 0.3 (0.8-1.8); Bilirubin, Total 0.3 mg/dL (0.1-1.0); Bun/Creatinine Ratio 22.4 (12.0-20.0); Calcium, Blood 7.3 mg/dL (8.5-10.1); Creatinine, Blood 0.49 mg/dL (0.60-1.20); Globulin, Blood 3.7 g/dL (2.2-4.0); Phosphorus, Blood 1.3 mg/dL (2.5-4.9); Potassium, Blood 3.3 mmol/L (3.5-5.5); Total Protein, Blood 4.8 g/dL (6.4-8.2)
--- NOTE | 2022-06-18 11:30 | NUR ---
DNR AFTER TALKING WITH DR. KNOTT, PT'S DAUGHTER CAME OUT AND SAID HER AND HER BORTHERS BELIEVE THE PT WOULD WANT DNR STATUS AND WOULD LIKE TO SWITCH HIM TO THAT. DR. KNOTT INFORMED AND GAVE OK TO PALCE DNR ORDER. ARMBAND PLACED ON PT'S R WWRIST.
--- NOTE | 2022-06-18 12:35 | NUR ---
REASSESSMENT PT HAD SEDATION VACATION THIS MORNING AND TOLERATED SEDATION OFF FOR 25 MINUTES BEFORE HIS RR SUSTAINED ABOVE 40, HE WAS COUGHING REPEATEDLY AND STARTED DESATURATING TO THE MID 80S. SEDATION RESTARTED AND PT'S RESP STATUS SETTLED BACK DOWN. WHILE SEDATION WAS OFF PT WOULD NOT RESPOND TO ANY COMMANDS AND STILL DID NOT HAVE A GAG REFLEX. LUNGS REMAIN COARSE. SINUS TACH IN THE 1 TEENS. LEVOPHED INFUSING STILL BUT NO TITRATIONS NEEDED THIS MORNING. TOLERATING TUBE FEED WITH ONLY 5ML RESIDUAL SO RATE INCREASED UP TO GOAL RATE OF 45ML/HR. PT'S BORTHER AND DAUGHTER VISITED THIS MORNING AND WERE UPDATED BY NURSING STAFF WELL HAVING AN EXTENSIVE CONVERSATION WITH DR. KNOTT.
--- NOTE | 2022-06-18 17:05 | NUR ---
SHIFT SUMMARY PT'S OXYGEN NEEDS HAVE BEEN INCREASING THROUGHOUT THE AFTERNOON WITH FIO2 TURNED UP 70% THIS EVENING TO MAINTAIN SPO2 ABOVE 90%. RT GAVE TREATMENT, PT TURNED, BUT STILL NEEDING MORE OXYGEN. SPOKE TO DR. KNOTT AND HE GAVE ORDERS TO INCREASE PEEP TO 8 AND THEN GAVE OK FOR PEEP TO GO HIGH 12 OVERNIGHT IF NEEDED. LUNGS REMAIN COARSE, BUT MINIMAL SECRETIONS. PT RECEIVED ALBUMIN THIS AFTERNOON PER DR KNOTT'S ORDERS AND LEVOPHED HAS BEEN TITRATED DOWN SINCE THEN, SEE FLOWSHEET. HR IN THE LOW 100S THIS EVENING. ABD REMAINS DISTENDED, BT PRESENT, NO BM SO FAR THIS SHIFT. ONLY 5ML RESIDUAL UPON CHECKS. VENT OF OG CLEARED AND STILL NO SIGNIFICANT RESIDUAL. EXTREMITIES REMAIN SWOLLEN. L FA HAS SMALL SPOT THAT IS LIGHTLY WEEPING. VERIFIED WITH DR. KNOTT THAT HE WANTS THE LASIX TO START TOMORROW, WHICH HE DOES. THE BOTTOM, DEPENDENT HALF OF THE END OF THE FORESKIN PENIS IS SO SWOLLEN THAT IT ALMOST LOOKS LIKE A LARGE BLISTER. EXAMINED WITH TECHNICAL SALES DIRECTOR AND VERIFIED THAT THE FORESKIN IS NOT MISPLACED AND CAUSING EVEN MORE EDEMA. SPOKE WITH PT'S LUPE THIS AFTERNOON VIA TC TO GIVE UPDATE AND PT'S BROTHER VISITED AGAIN THIS EVENING AND UPDATED.
--- NOTE | 2022-06-18 20:00 | NUR ---
RECIEVED REPORT FROM JENS FONG. PT SEDATED ON PROPOFOL. CURRENT VENT SETTINGS 16/410/8/70% WITH O2 SATS IN LOW 90s. BP SOFT. LUNG SOUNDS COARSE THROUGHOUT AND NO SECRETIONS NOTED WHEN SUCTIONED. GENERALIZED 3+/4+ EDEMA. ABD FIRM AND HAS HYPOACTIVE BOWEL TONES. SCHEDULED COLACE GIVEN BECAUSE PT HAS NOT HAD A BM IN 2 DAYS.
[2022-06-18 23:00] LABS: Magnesium, Blood 1.5 mg/dL (1.6-2.4)
[2022-06-18 23:01] LABS: Phosphorus, Blood 3.3 mg/dL (2.5-4.9); Potassium, Blood 3.9 mmol/L (3.5-5.5)
--- NOTE | 2022-06-19 00:47 | NUR ---
UPDATE: SPOKE WITH DR. KNOTT AND SUGGESTED A POTASSIUM-SPARING DIURETIC BECAUSE HIS LUNGS SOUNDS WERE COARSE, HIS O2 SAT KEPT DROPPING <88% AND HIS LAST K-LEVEL WAS 3.3. DR. KNOTT ORDERED TO INCREASE PT'S PEEP TO 12 AND HOLD OFF ON ANY DIURECTICS UNTIL THE MORNING. REPEAT K, MAG AND PHOS WERE ALSO ORDERED TO RECHECK LEVELS. CURRENT VENT SETTINGS: 16/410/12/75%. PT'S O2 SATS ARE 96%. WILL CONTINUE TO MONITOR AND UPDATE MD NEEDED.
[2022-06-19 04:50] LABS: BASOPHILS ABSOLUTE AUTO 0.05 K/mm3 (0.00-0.23); BASOPHILS PERCENT AUTO 0 % (0-2); Hemoglobin 6.8 g/dL (13.5-17.5); Mean Corpuscular HGB 30.8 pg (26.0-34.0); Mean Corpuscular HGB Conc 32.4 g/dL (31.5-36.5); Mean Corpuscular Volume 95 fL (80-100); Mean Platelet Volume 9.8 fL (9.1-12.4); NRBC ABSOLUTE 0.02 K/mm3 (0.00-0.02); NRBC Auto 0.1 /100 WBC (0.0-0.2); Platelet Count 226 K/mm3 (150-400); RDW Coefficient Variation 17.9 % (11.7-14.2); RDW Standard Deviation 60.6 fL (35.1-46.3); Red Blood Cell Count 2.21 M/mm3 (4.30-5.90); White Blood Cell Count 14.95 K/mm3 (4.00-11.30)
[2022-06-19 05:03] LABS: Alanine Aminotransfer (ALT/SGP 15 U/L (12-78); Albumin, Blood 1.7 g/dL (3.4-5.0); Albumin/Globulin Ratio 0.5 (0.8-1.8); Alk Phos 164 U/L (50-136); Anion Gap 6 mmol/L (6-16); Aspartate Aminotrans (AST/SGOT 37 U/L (12-37); Bilirubin, Total 0.5 mg/dL (0.1-1.0); Blood Urea Nitrogen 12 mg/dL (8-24); Bun/Creatinine Ratio 27.3 (12.0-20.0); CO2, Blood 22 mmol/L (21-32); Calcium, Blood 7.5 mg/dL (8.5-10.1); Chloride, Blood 114 mmol/L (98-108); Creatinine, Blood 0.44 mg/dL (0.60-1.20); Globulin, Blood 3.3 g/dL (2.2-4.0); Glomerular Filtration Rate 119 (60-); Glucose, Blood 241 mg/dL (70-99); Magnesium, Blood 1.9 mg/dL (1.6-2.4); Phosphorus, Blood 3.2 mg/dL (2.5-4.9); Potassium, Blood 3.9 mmol/L (3.5-5.5); Sodium, Blood 142 mmol/L (136-145)
[2022-06-19 05:05] LABS: EOSINOPHILS PERCENT AUTO 1 % (0-6); IMMATURE GRAN ABSOLUTE AUTO 0.48 K/mm3 (0.00-0.10); IMMATURE GRAN PERCENT AUTO 3 % (0-1); LYMPHOCYTES PERCENT AUTO 7 % (21-46); MONOCYTES ABSOLUTE AUTO 0.46 K/mm3 (0.16-1.47); MONOCYTES PERCENT AUTO 3 % (4-13); NEUTROPHILS ABSOLUTE AUTO 12.76 K/mm3 (1.96-9.15); NEUTROPHILS PERCENT AUTO 85 % (41-73)
--- NOTE | 2022-06-19 06:44 | NUR ---
SHIFT SUMMARY: PT STILL SEDATED AND INTUBATED. VENT SETTINGS INCREASED OVERNIGHT FROM 16/410/8/70% TO 16/410/12/60% D/T DESATTING TO 85-87%. LUNG SOUNDS IMPROVED WITH THE INCREASE IN PEEP, HOWEVER STILL COARSE. SR WITH HR 80-90s. BP DROPPED WITH INCREASE IN PEEP SO NOREPI DRIP RESTARTED. EDEMA SEEMS TO BE GETTING WORSE AND LASIX SUPPOSED TO BE RESTARTED TODAY. ABDOMEN IS FIRM AND PT HASN'T HAD A BM SINCE 06/16 - SCHEDULED COLACE AND PRN MILK OF MAG GIVEN. TF STILL INFUSING AT 45ML/HR AND MAX RESIDUAL WAS 100ML. AM ELECTROLYTE LABS LOOKED WNL, HGB DROPPED TO 6.8 WITH NO EVIDENCE OF A BLEED, 1 PRBC ORDERED FOR THIS AM AND WILL PASS ON TO DAY SHIFT RN.
[2022-06-19 07:48] LABS: Hematocrit 20.4 % (37.0-53.0); Hemoglobin 6.7 g/dL (13.5-17.5)
--- NOTE | 2022-06-19 09:23 | NUR ---
Tube feeds turned off at this time for EGD later today.
--- NOTE | 2022-06-19 11:14 | NUR ---
PT'S CARE ASSUMED AT 0700, PROPOFOL @ 50MCG/KG, LEVOPHED @ 4MCG/MIN, MAINTENANCE FLUIDS INFUSING. ONE UNIT PRBC'S ORDERED. TRANSFUSED, PT TOLERATED WELL. DAUGHTER AND SON IN LAW IN TO VISIT, UPDATE GIVEN. PT WAS TITRATED DOWN TO 40MCG/KG ON PROPOFOL AND INCREASE IN RESPIRATORY RATE SO RETURNED TO 50MCG FOR PATIENT COMFORT. LASIX GIVEN WITH GOOD RESPONSE. OVER 1LITER EMPTIED OUT SO FAR. SEE ASSESSMENT FOR FURTHER INFORMATION.
[2022-06-19 14:12] LABS: Hematocrit 24.1 % (37.0-53.0); Hemoglobin 8.3 g/dL (13.5-17.5)
--- NOTE | 2022-06-19 18:41 | NUR ---
KJ CONTINUES WITH NO COUGH, GAG OR PURPOSEFUL MOVEMENTS WITHOUT OR WITHOUT THE PROPOFOL. HE HAS FLACCID ARMS AND LEGS, GOOD ROM WITH ALL JOINTS, EDEMA CONTINUES AT 4+. HIS PUPILS ARE SIZE 2 AND BRISK, DOESN'T TRACK VOICE. WHEN PROPOFOL DECREASED HIS RESP RATE INCREASES TO 40'S. HE HAS BEEN IN SINUS RHYTHM, RATE 90S, BP STABLE @ 4MCG LEVOPHED WITH MAP>65. PULSES STRONG, DOPPLAR ON THE PEDAL R/T EDEMA. VENT AC 16/410/12/60% LUNG SOUNDS COARSE NO RETURN ON ETT SUCTIONING. RIGHT SIDE DOWN CAUSES HIM TO HAVE LOWER SATS 88-90% THAN LEFT SIDE DOWN WITH SATS IN MID 90S. ABD REMAINS LARGELY DISTENDED FIRM AND NOTHING OUT. HIS PER TUBE MEDS WERE HELD TODAY WE HAVE BEEN EXPECTING FOR EGD. OAKLEY TO GRAVITY DRAINAGE WITH GOOD RETURN FROM LASIX DOSE THIS AM. HE CONTINUES WITH EDEMA OF SCROTUM AND HANDS/FEET. SCD'S REMOVED AT 1800 FOR A BREAK. IV DENISSE WITH PROPOFOL, CENTRAL LINE TO RIGHT NECK WITH LEVO AND MAINTENANCE FLUIDS FOR ANTIBIOTICS. DAUGHTER HAS BEEN IN AND OUT TODAY, MOM AND SISTER VISITED THIS AFTERNOON FOR A COUPLE OF HOURS. ONE UNIT OF PRBC'S GIVEN TODAY WITHOUT ANY SEQUELAE. CONTINUE TO MONITOR AND TREAT, REPORTING OFF TO NEXT SHIFT WHEN ABLE.
[2022-06-19 20:35] LABS: Hematocrit 23.5 % (37.0-53.0); Hemoglobin 8.1 g/dL (13.5-17.5)
--- NOTE | 2022-06-19 21:14 | NUR ---
06/19/222113 Tanja Beckett IT OPERATIONS MANAGER SEDATION CASE IN ICU ROOM 13.
[2022-06-20 02:15] LABS: Hematocrit 24.1 % (37.0-53.0); Hemoglobin 8.3 g/dL (13.5-17.5); Mean Corpuscular HGB 31.6 pg (26.0-34.0); Mean Corpuscular HGB Conc 34.4 g/dL (31.5-36.5); Mean Corpuscular Volume 92 fL (80-100); Mean Platelet Volume 9.9 fL (9.1-12.4); NRBC ABSOLUTE 0.03 K/mm3 (0.00-0.02); NRBC Auto 0.2 /100 WBC (0.0-0.2); Platelet Count 201 K/mm3 (150-400); RDW Standard Deviation 59.1 fL (35.1-46.3); Red Blood Cell Count 2.63 M/mm3 (4.30-5.90); White Blood Cell Count 15.96 K/mm3 (4.00-11.30)
[2022-06-20 02:30] LABS: International Normalized Ratio 1.07; Prothrombin Time Results 11.2 Sec (9.7-11.5)
[2022-06-20 02:34] LABS: Alanine Aminotransfer (ALT/SGP 17 U/L (12-78); Albumin, Blood 1.5 g/dL (3.4-5.0); Albumin/Globulin Ratio 0.4 (0.8-1.8); Alk Phos 176 U/L (50-136); Anion Gap 8 mmol/L (6-16); Aspartate Aminotrans (AST/SGOT 35 U/L (12-37); Bilirubin, Total 0.7 mg/dL (0.1-1.0); Blood Urea Nitrogen 10 mg/dL (8-24); Bun/Creatinine Ratio 20.7 (12.0-20.0); CO2, Blood 23 mmol/L (21-32); Calcium, Blood 7.6 mg/dL (8.5-10.1); Chloride, Blood 112 mmol/L (98-108); Creatinine, Blood 0.48 mg/dL (0.60-1.20); Globulin, Blood 3.6 g/dL (2.2-4.0); Glomerular Filtration Rate 116 (60-); Glucose, Blood 212 mg/dL (70-99); Magnesium, Blood 1.7 mg/dL (1.6-2.4); Phosphorus, Blood 2.9 mg/dL (2.5-4.9); Potassium, Blood 3.5 mmol/L (3.5-5.5); Sodium, Blood 143 mmol/L (136-145); Total Protein, Blood 5.1 g/dL (6.4-8.2)
[2022-06-20 02:46] LABS: BAND PERCENT MAN 6 % (0-8); BASOPHILS PERCENT MAN 0 % (0-2); EOSINOPHILS ABSOLUTE MAN 0.31 K/mm3 (0.00-0.68); EOSINOPHILS PERCENT MAN 2 % (0-6); LYMPHOCYTES ABSOLUTE MAN 0.47 K/mm3 (0.84-5.20); LYMPHOCYTES PERCENT MAN 3 % (21-46); METAMYELOCYTE ABSOLUTE MAN 0.15 K/mm3 (0.00-0.00); METAMYELOCYTE PERCENT MAN 1 % (0-0); MONOCYTES ABSOLUTE MAN 0.15 K/mm3 (0.16-1.47); MONOCYTES PERCENT MAN 1 % (4-13); MYELOCYTE ABSOLUTE MAN 0.31 K/mm3 (0.00-0.00); MYELOCYTE PERCENT MAN 2 % (0-0); NEUTROPHILS ABSOLUTE MAN 14.52 K/mm3 (1.96-9.15); SEG NEUTROPHILS PERCENT MAN 85 % (41-73); TOTAL CELLS COUNTED 100
--- NOTE | 2022-06-20 06:51 | NUR ---
SHIFT SUMMARY: NEURO: COUGHS AND GAGS, DOES NOT FOLLOW COMMANDS. CARDIAC: SR/ST AFEBRILE, ON LEVO MAP >65 RESP: VENTILATOR SETTINGS UNCHANGED. GI/: LOW UOP. OAKLEY IN PLACE. SCROTUM VERY EDEMETOUS. FIRM ABDOMEN, NO BM THIS SHIFT. TF RUNNING GOAL VITAL HP SKIN: +4 PITTING DEPENDENT PITTING EDEMA. BRUSIES AND MARKINGS UNCHANGED. OTHER: PATIENT UNDERWENT UPPER EGD THIS EVENING. TOLERATED WELL. SEE MD NOTE FOR MORE INFORMATION.
--- NOTE | 2022-06-20 07:58 | NUR ---
ASSUMED CARE AT 0700, ASSESSMENT COMPLETED. ATTEMPTS TO TURN DOWN THE PROPOFOL WITH INCREASED RESPIRATORY RATE, FENTANYL GIVEN. ORAL CARE ILLICITS A "MCCOY" OF THE VENTILATOR, NO OTHER RESPONSES. NO GAG, NO HEAD TURN, NO ARM MOVEMENTS. CONTINUES WITH GENERALIZED EDEMA, HANDS AND FEET 4+. DR. BOYER IN FOR ROUNDS.
[2022-06-20 08:15] LABS: Hematocrit 24.2 % (37.0-53.0); Hemoglobin 8.2 g/dL (13.5-17.5)
--- NOTE | 2022-06-20 12:25 | NUR ---
KJ HAS BEEN STARTED ON THE FENTANYL @ 25MCG/HR CONTINUOUS INFUSION, HEPARIN GTT STARTED @ 18U/KG/ML, PROPOFOL REMAINS AT 40MCG/KG. HE HAS BEEN BOOSTED AND REPOSITIONED WITH HIS SATS @ 98%. DAUGHTER,SON IN LAW, AND NIECE HERE FOR A VISIT. URINE OUTPUT IMPROVED AFTER DOSE OF LASIX THIS AM.
--- NOTE | 2022-06-20 18:44 | NUR ---
SUMMARY OF DAY: KJ CONTINUES ON PROPOFOL @ 30MCG/KG, HE DOESN'T FOLLOW ANY COMMANDS AND THERE IS NO OBSERVED PURPOSEFUL MOVEMENTS. HIS LIMBS ARE FLACCID WHEN LET GO OF, NO EFFORTS AT REPOSITIONING WHEN THEY ARE ASKEW. HE DOESN'T OPEN HIS EYES TO ANY STIMULUS. HE WILL COUGH AGAINST THE VENTILATOR ON OCC. HIS LUNGS REMAIN COARSE WITH FINE RALES IN THE BASES, VENT AC 16/410/12/60%. HE MAINTAINS SATS >90%. HEPARIN GTT IS INFUSING PER PHARMACY DOSING @ 18U/KG/HR WITH RECHECK ORDERED. FENTANYL CONTINUOUS INFUSION VIA NUISANCE WILDLIFE SPECIALIST @ 25MCG/HOUR WITH GOOD RELIEF. OGT WITH VHP @ 45ML/HR, ABDOMEN IS FIRM, NO RESPONSE WITH PALPATION. OAKLEY TO GRAVITY DRAINAGE WITH GOOD OUTPUT AND RESPONSE FROM THE LASIX. EDEMA IN THE HANDS/FEET/KNEES LOOKS TO BE IMPROVING SLIGHTLY. CONTINUES WITH ECCHYMOTIC ARMS AND BRUISING NOTED IN VARIOUS PLACES. LEFT FLANK REMAINS EDEMATOUS WELL. WILL CONTINUE TO TITRATE PROPOFOL TO WAKEFULNESS.
[2022-06-20 22:09] LABS: Hematocrit 23.7 % (37.0-53.0); Mean Corpuscular HGB 30.9 pg (26.0-34.0); Mean Corpuscular HGB Conc 33.8 g/dL (31.5-36.5); Mean Corpuscular Volume 92 fL (80-100); Mean Platelet Volume 10.7 fL (9.1-12.4); NRBC ABSOLUTE 0.05 K/mm3 (0.00-0.02); NRBC Auto 0.4 /100 WBC (0.0-0.2); Platelet Count 174 K/mm3 (150-400); RDW Coefficient Variation 17.9 % (11.7-14.2); RDW Standard Deviation 58.3 fL (35.1-46.3); Red Blood Cell Count 2.59 M/mm3 (4.30-5.90); White Blood Cell Count 13.18 K/mm3 (4.00-11.30)
[2022-06-20 22:31] LABS: BASOPHILS PERCENT MAN 0 % (0-2); EOSINOPHILS ABSOLUTE MAN 0.52 K/mm3 (0.00-0.68); EOSINOPHILS PERCENT MAN 4 % (0-6); LYMPHOCYTES % ATYPICAL MANUAL 1 % (0-0); LYMPHOCYTES ABSOLUTE MAN 1.18 K/mm3 (0.84-5.20); LYMPHOCYTES PERCENT MAN 8 % (21-46); MONOCYTES ABSOLUTE MAN 1.18 K/mm3 (0.16-1.47); MONOCYTES PERCENT MAN 9 % (4-13); MYELOCYTE ABSOLUTE MAN 0.13 K/mm3 (0.00-0.00); MYELOCYTE PERCENT MAN 1 % (0-0); NEUTROPHILS ABSOLUTE MAN 10.14 K/mm3 (1.96-9.15); SEG NEUTROPHILS PERCENT MAN 77 % (41-73); TOTAL CELLS COUNTED 100
--- NOTE | 2022-06-21 05:35 | NUR ---
END OF SHIFT SUMMARY LEVO 3 MCG/MIN. FENTANYL 25 MCG/HR. PROPOFOL 25 MCG/KG/MIN. HEPARIN 15 UNITS/KG/HR NEURO: PT WILL NOT LOCALIZE OR OPEN EYES TO NOXIOUS STIMULI. WEAK COUGH NOTED WHEN USING INLINE SUCTION. PUPILS 2MM BRISK AND PERRL. CARDIAC: BPM 90s-100s. SBP 90s-100s. MAP > 65. CAP REFILL < 3 SECONDS. BILATERAL RADIAL PULSES FAINT. BILATERAL PEDAL PULSES DOPPLER REQUIRED. GENERALIZED +3-4 EDEMA, MOST NOTED IN LOWER EXTREMITIES, ABDOMEN AND GENITALS. RESPIRATORY: ETT SIZE 8 24 CM AT TEETH. AC/RR 16/TV 410/FI02 60/PEEP 12. COUGHING BUT TOLERATING VENTILATOR. TACHYPNEIC WITH RATE IN 30s. APPRECIATED COARSE BREATH SOUNDS IN BILATERAL UPPERS AND RALES IN BILATERAL LOWERS. SMALL AMOUNTS OF THICK YELLOW/CUTLER OUTPUT. GI/: VITAL HP 1.0 PARIS AT 45 ML/HR WITH 30ML WATER FLUSH Q4. RESIDUALS <100 ML. NO BOWEL MOVEMENT OVERNIGHT. MILK OF MAGNESIA PRN GIVEN. [place] IN PLACE. PATIENT AVERAGING 30 ML/HR OF CLEAR SABINE URINE. MUSCULOSKELETAL: SEDATED AND UNRESPONSIVE. FLACCID LIMBS. STRENGTH UNTESTABLE.
[2022-06-21 05:38] LABS: Hematocrit 24.1 % (37.0-53.0); Hemoglobin 8.3 g/dL (13.5-17.5); Mean Corpuscular HGB 31.3 pg (26.0-34.0); Mean Corpuscular HGB Conc 34.4 g/dL (31.5-36.5); Mean Corpuscular Volume 91 fL (80-100); Mean Platelet Volume 10.7 fL (9.1-12.4); NRBC ABSOLUTE 0.04 K/mm3 (0.00-0.02); NRBC Auto 0.3 /100 WBC (0.0-0.2); Platelet Count 175 K/mm3 (150-400); RDW Standard Deviation 58.7 fL (35.1-46.3); Red Blood Cell Count 2.65 M/mm3 (4.30-5.90); White Blood Cell Count 12.73 K/mm3 (4.00-11.30)
[2022-06-21 06:06] LABS: Albumin, Blood 1.3 g/dL (3.4-5.0); Albumin/Globulin Ratio 0.3 (0.8-1.8); Bilirubin, Total 0.5 mg/dL (0.1-1.0); Bun/Creatinine Ratio 28.3 (12.0-20.0); Calcium, Blood 7.7 mg/dL (8.5-10.1); Creatinine, Blood 0.46 mg/dL (0.60-1.20); Globulin, Blood 3.9 g/dL (2.2-4.0); Magnesium, Blood 1.6 mg/dL (1.6-2.4); Potassium, Blood 3.3 mmol/L (3.5-5.5); Total Protein, Blood 5.2 g/dL (6.4-8.2)
[2022-06-21 06:26] LABS: BAND PERCENT MAN 4 % (0-8); BASOPHILS PERCENT MAN 0 % (0-2); EOSINOPHILS ABSOLUTE MAN 0.25 K/mm3 (0.00-0.68); EOSINOPHILS PERCENT MAN 2 % (0-6); LYMPHOCYTES ABSOLUTE MAN 0.89 K/mm3 (0.84-5.20); LYMPHOCYTES PERCENT MAN 7 % (21-46); METAMYELOCYTE ABSOLUTE MAN 0.12 K/mm3 (0.00-0.00); METAMYELOCYTE PERCENT MAN 1 % (0-0); MONOCYTES ABSOLUTE MAN 0.63 K/mm3 (0.16-1.47); MONOCYTES PERCENT MAN 5 % (4-13); NEUTROPHILS ABSOLUTE MAN 10.82 K/mm3 (1.96-9.15); SEG NEUTROPHILS PERCENT MAN 81 % (41-73); TOTAL CELLS COUNTED 100
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
--- NOTE | 2022-06-21 09:44 | NUR ---
SPEAKING WITH FAMILY, DAUGHTER AND BROTHER IN THE ROOM. PROPOFOL TURNED OFF, RESTRAINTS APPLIED, FENTANYL GTT STOPPED. WOULD LIKE PT TO WAKE UP.
--- NOTE | 2022-06-21 12:18 | NUR ---
LEVOPHED IS ON STANDBY, PROPOFOL IS OFF, FENTANYL IS OFF. PT IS STILL UNAROUS- ABLE. PUPILS ARE SIZE 4 AND REACTIVE, PT IS DROOLING FROM THE MOUTH, NO GAG WITH ORAL CARE, NO PURPOSEFUL MOVEMENT WITH PT TURN AND REPOSITION. EYELIDS HAVE BEGUN FLUTTERING BUT HAVE NOT OPENED.
--- NOTE | 2022-06-21 18:19 | NUR ---
KJ IS NO LONGER ON PROPOFOL, FENTANYL, LEVOPHED. HE CONTINUES ON HEPARIN AT CURRENT RATE MANAGED BY PHARMACY. KJ IS GRIMACING AND COUGHING. HE HAS NO PURPOSEFUL MOVEMENTS, ARMS AND LEGS ARE FLACCID BUT JOINTS HAVE GOOD ROM. CONTINUES WITH EDEMA 4+ LOWER EXTREMETIES, 2+ ARMS/HANDS. TRUNK REMAINS 3+ AND TAUT AND SHINY. RESPIRATORY RATE INCREASES WHEN ABDOMEN IS PALPATED. NO BM THIS SHIFT. RESIDUAL 225ML WITH ONE EPISODE OF EMESIS OF TUBE FEEDING AT 1600 POST ORAL CARE. FAMILY AT BEDSIDE THIS EVENING WHICH IS NOT ILLICITING ANY RESPONSE. HE INITIALLY WAS VERY TACHYPNEIC DURING REPOSITIONING WITH RATES IN THE 50'S AFTER MEDICATIONS WERE TURNED OFF. HE TOOK QUITE A BIT OF TIME TO SLOW DOWN,SINCE THEN EACH TIME OF REPOSITION THE TRANSITION TO SLOW DOWN HAS TAKEN LESS TIME. SATS ARE STAYING IN THE MID 90'S ON 50% FIO2. WILL CONTINUE TO MONITOR AND TREAT, REPORTING OFF TO NEXT SHIFT WHEN ABLE.
--- NOTE | 2022-06-22 02:50 | NUR ---
PT TAKEN TO CT FOR CT HEAD. WHEN TRANSFERED TO CT TABLE PT WAS COUGHING SO MUCH THAT HIS RESPIRATORY RATE ON THE VENTILATOR WAS READING IN THE 100'S. PT WAS GIVEN PRN FENTANYL JUST FOR THE SCAN PER EMAR. PT TOLERATED SCAN WELL, BROUGHT BACK TO ICU-13 AND ONCE WE REPOSITIONED PT AND LET HIM REST, HIS RESPIRATORY RATE RETURNED TO <40.
[2022-06-22 05:02] LABS: Hematocrit 23.4 % (37.0-53.0); Hemoglobin 7.9 g/dL (13.5-17.5); Mean Corpuscular HGB 30.6 pg (26.0-34.0); Mean Corpuscular HGB Conc 33.8 g/dL (31.5-36.5); Mean Corpuscular Volume 91 fL (80-100); Mean Platelet Volume 10.7 fL (9.1-12.4); NRBC ABSOLUTE 0.09 K/mm3 (0.00-0.02); NRBC Auto 0.8 /100 WBC (0.0-0.2); Platelet Count 158 K/mm3 (150-400); RDW Coefficient Variation 17.4 % (11.7-14.2); RDW Standard Deviation 56.3 fL (35.1-46.3); Red Blood Cell Count 2.58 M/mm3 (4.30-5.90); White Blood Cell Count 10.71 K/mm3 (4.00-11.30)
[2022-06-22 05:17] LABS: Albumin, Blood 1.2 g/dL (3.4-5.0); Anion Gap 7 mmol/L (6-16); Blood Urea Nitrogen 20 mg/dL (8-24); Bun/Creatinine Ratio 43.5 (12.0-20.0); CO2, Blood 26 mmol/L (21-32); Calcium, Blood 8.1 mg/dL (8.5-10.1); Chloride, Blood 110 mmol/L (98-108); Creatinine, Blood 0.46 mg/dL (0.60-1.20); Glomerular Filtration Rate 118 (60-); Glucose, Blood 338 mg/dL (70-99); Phosphorus, Blood 2.2 mg/dL (2.5-4.9); Potassium, Blood 3.4 mmol/L (3.5-5.5); Sodium, Blood 143 mmol/L (136-145)
[2022-06-22 06:09] LABS: BAND PERCENT MAN 7 % (0-8); BASOPHILS PERCENT MAN 1 % (0-2); EOSINOPHILS PERCENT MAN 1 % (0-6); LYMPHOCYTES ABSOLUTE MAN 1.07 K/mm3 (0.84-5.20); LYMPHOCYTES PERCENT MAN 10 % (21-46); MONOCYTES ABSOLUTE MAN 0.53 K/mm3 (0.16-1.47); MONOCYTES PERCENT MAN 5 % (4-13); NEUTROPHILS ABSOLUTE MAN 8.88 K/mm3 (1.96-9.15); SEG NEUTROPHILS PERCENT MAN 76 % (41-73); TOTAL CELLS COUNTED 100
--- NOTE | 2022-06-22 06:15 | NUR ---
Shift summary: At the beginning of shift the pt would not open eyes or move and extremities to painful stimuli. Around 4am, the pt started moving his head from side to side but nothing else. CT head done around 2am and according to the report, was negative. Pt still has a cough but no gag. ST throughout the shift in low 100s. BP's soft but MAP >65. Edema seems to be getting worse in BLE. Vent settings steadily getting better: AC 16/410/12/40%. Consistently tachypnic with respiratory rate 30-45. Tube feeds still infusing at 45ml/hr with residuals in the 100s. PRN suppository given at beginning of shift and pt successfully had a small/medium loose BM. Abdomen still remains firm and BS are still hypoactive. Davila still intact and draining. 500ml UO. Spoke with daughter Jennifer this am and updated her on how pt did overnight. She explained that she would like to be called if there are any major changes or if her dad wakes up and follows commands. Will pass on to day shift.
--- NOTE | 2022-06-22 08:48 | NUR ---
Assumed care of pt at 0715 Bedside report recieved from NOC shift RN, pt remians intubated, vent rate 16, tidal volume 410, peep 12, fio2 35%. Has been off sedation for 21 hours with no purposeful movement or response to pain. BP stable off levophed, NSR/ST with 4 beat run of vtach at 0612. OGT with VHP at 45ml/hr, pt sam well. Edema remains 3+ pitting BLE, scrotum and abd. 2+ edema on bilat hands. Davila patent and draining mu urine. Skin with scattered bruising and some oozing from edematous areas, otherwise intact. Has RIJ infusing Heparin at 17units/kg/hr, NS TKO, Potassium Phosphate IVPB. No family at bedside. Daughter requests call with update or improvement in mental status. RN to continue to follow
[2022-06-22 15:00] LABS: Hematocrit 24.7 % (37.0-53.0); Hemoglobin 8.3 g/dL (13.5-17.5)
--- NOTE | 2022-06-22 18:44 | NUR ---
END OF SHIFT SUMMARY PT GRIMACES TO PAIN, OPENS EYES SPONTANEOUSLY BUT HAS AN UPWARD GAZE. DOES NOT FOLLOW COMMANDS OR MOVE EXTREMETIES. HAS BEEN OFF SEDATION SINCE 06/21 AT 1000. REMAINS ON VENT 16///35%, RESP RATE HAS BEEN 40-48 FOR THE DURATION OF THE SHIFT. MD AWARE, NO NEW ORDERS. LUNGS COARSE AT TIMES, NO SPUTUM PRODUCTION. BOWEL SOUNDS HYPOACTIVE ALTHOUGH HAS HAD 2 BM'S TODAY AND ABDOMEN IS LESS FIRM. OAKLEY PATENT AND DRAINING CLEAR YELLOW URINE. PT HAD 2550 OUT AFTER LASIX AND BUMEX IV. EXTREMITY EDEMA IMPROVING. SKIN REMIANS INTACT WITH SCATTERED BRUISING. BLOOD GLUCOSE ELEVATED >300 ON AM LABS, MD ORDERED Q6HOUR BLOOD GLUCOSE CHECKS WITH LONG ACTING INSULIN COVERAGE WELL SLIDING SCALE. 1800 BLOOD GLUCOSE CHECK >400 WITH FS AND 380'S WITH VENOUS DRAW. INFORMED DR. ROBLES OF ABOVE PER ORDER. SHE ADVISES TO CONTINUE TO MONITOR. FAMILY VISITING AT BEDSIDE THROUGHOUT THE DAY, UPDATED ON POC.
--- NOTE | 2022-06-22 19:57 | NUR ---
ASSUMED CARE AT 1900 PATIENT HAS SLIGHT GRIMACE TO PAINFUL STIMULI, EXTREMITIES FLACCID. GAG AND COUGH WITH DEEP SUCTIONING. NO SEDATION AT THIS TIME. ON VENT AC VC 16/410/10/35%, 02 SATS 95%, RR 35-45. NO SECRETIONS FROM ETT TUBE WHEN SUCTIONED. LS COARSE T/O. OG WITH VITAL HP AT GOAL RATE OF 55 MLS/HR. 30 MLS FLUSHES Q4 HOURS. 20 MLS RISIDUAL REINSTILLED. HR ST 100-110, BP STABLE. OAKLEY PATENT AND DRAINING TO GRAVITY. DEEP PITTING EDEMA IN EXTREMITIES AND SCROTUM. ORAL CARE DONE AND PATIENT REPOSITIONED SEE SHIFT ASSESSMENT FOR MORE INFORMATION.
--- NOTE | 2022-06-22 23:18 | NUR ---
CALLED PHARMACY AT APPROX [phone] WITH NEW PTT RESULTS, WILL CONTINUE HEPARIN AT CURRENT RATE
--- NOTE | 2022-06-22 23:55 | NUR ---
PATIENTS BLOOD GLUCOSE REMAINS HIGH, LAST CHECK 384, CALLED HOSPITALIST, 10 UNITS LANTUS NOW AND CHANGE DAILY DOSE TO 20 UNITS.
[2022-06-23 03:44] LABS: BASOPHILS ABSOLUTE AUTO 0.04 K/mm3 (0.00-0.23); BASOPHILS PERCENT AUTO 0 % (0-2); EOSINOPHILS ABSOLUTE AUTO 0.07 K/mm3 (0.00-0.68); EOSINOPHILS PERCENT AUTO 1 % (0-6); Hematocrit 26.5 % (37.0-53.0); Hemoglobin 8.9 g/dL (13.5-17.5); IMMATURE GRAN ABSOLUTE AUTO 0.53 K/mm3 (0.00-0.10); IMMATURE GRAN PERCENT AUTO 5 % (0-1); LYMPHOCYTES ABSOLUTE AUTO 1.28 K/mm3 (0.84-5.20); LYMPHOCYTES PERCENT AUTO 11 % (21-46); MONOCYTES ABSOLUTE AUTO 0.49 K/mm3 (0.16-1.47); MONOCYTES PERCENT AUTO 4 % (4-13); Mean Corpuscular HGB 30.9 pg (26.0-34.0); Mean Corpuscular HGB Conc 33.6 g/dL (31.5-36.5); Mean Corpuscular Volume 92 fL (80-100); Mean Platelet Volume 11.4 fL (9.1-12.4); NEUTROPHILS ABSOLUTE AUTO 9.38 K/mm3 (1.96-9.15); NEUTROPHILS PERCENT AUTO 80 % (41-73); NRBC Auto 0.8 /100 WBC (0.0-0.2); Platelet Count 180 K/mm3 (150-400); RDW Coefficient Variation 17.7 % (11.7-14.2); RDW Standard Deviation 56.6 fL (35.1-46.3); Red Blood Cell Count 2.88 M/mm3 (4.30-5.90); White Blood Cell Count 11.79 K/mm3 (4.00-11.30)
--- NOTE | 2022-06-23 03:55 | NUR ---
CALLED DR. LEUNG DUE TO PATIENTS RR INCREASING TO 50s, HR 130s, AND FI02 FROM 35% TO 65% TO MAINTAIN 02 SATS >90%. PATIENT ALSO COUGHING FOR LONG PERIODS OF TIME. ATTEMPTED FENTANYL TWICE WITH NO IMPROVEMENT, RESTARTED PROPOFOL PER DR. LEUNG. HEATH PUSH PRN ONCE PATIENT SEDATED IF COUGHING CONTINUES.
[2022-06-23 04:00] LABS: Albumin, Blood 1.3 g/dL (3.4-5.0); Anion Gap 9 mmol/L (6-16); Blood Urea Nitrogen 22 mg/dL (8-24); Bun/Creatinine Ratio 47.4 (12.0-20.0); CO2, Blood 26 mmol/L (21-32); Chloride, Blood 108 mmol/L (98-108); Creatinine, Blood 0.46 mg/dL (0.60-1.20); Glomerular Filtration Rate 118 (60-); Glucose, Blood 335 mg/dL (70-99); Phosphorus, Blood 4.1 mg/dL (2.5-4.9); Potassium, Blood 4.1 mmol/L (3.5-5.5); Sodium, Blood 143 mmol/L (136-145)
--- NOTE | 2022-06-23 05:28 | NUR ---
SHIFT SUMMARY PATIENT NOW SEDATED WITH PROPOFOL DUE TO RR 50S, HR 130s, AND COUGHING/UNABLE TO TOLERATE VENT. GRIMACES TO PAINFUL STIMULI, EYES REMAIN IN AN UPWARD GAZE, NO TRACKING. EXTREMITIES REMAIN FLACCID. 02 SATS 95%, RR 45, VENT AC VC 16/410/10/65%. HR ST 110-120s, BP REMAINS STABLE. OG WITH TF VITAL HP AT GOAL RATE. OAKLEY PATENT AND DRAINING TO GRAVITY, 600 OUT THIS SHIFT. PATIENT HAVING MULTIPLE LIQUID BROWN STOOLS, RECTAL TUBE PLACED. BED BATH DONE THIS SHIFT.
[2022-06-23 11:04] LABS: Triglycerides 175 mg/dL (30-160)
--- NOTE | 2022-06-23 16:50 | NUR ---
Pt was taken off propofol and fentanyl 2 days ago to allow him to being to waken on his own. However, he was not waking, instead appeared to be uncomfortable and coughing over the vent. He was placed back on propofol, but blood pressures were soft, so also placed on levophed. Pt's Fio2 needs have increased overnight last night as well. Both abd and chest CT's were ordered. Pt appears to have pneumonia, fatty liver and pancreatitis. Plan to see pt's daughter Jennifer again tomorrow for therapeutic visit. Will continue to monitor pt's condition for now.
--- NOTE | 2022-06-23 17:58 | NUR ---
SHIFT SUMMARY NO ACUTE CHANGES THIS SHIFT. PT REMAINS INTUBATED AND SEDATED. VENT SETTINGS AC 16, TV 410, PEEP 10, FIO2 TITRATED UP TO 60%. PT WITH SCANT ETT SECRETIONS THIS SHIFT. PT WITH OCCASIONAL VOMIT LIKE ORAL SECRETIONS NOTED, DR LEUNG AWARE. OGT REMAINS IN PLACE, TF RESUMED AT 40 ML/HR THIS AFTERNOON PER ORDERS. ABDOMEN REMAINS DISTENDED AND FIRM. CENTRAL LINE TO RIJ REMAINS IN PLACE WITH HEPARIN INFUSING AT 17 UNITS/KG/HR, NS TKO, PROPOFOL AT 25 MCG/KG/MIN, AND LEVOPHED AT 3 MCG/MIN. PT REMAINS UNRESPONSIVE TO NOXIOUS STIMULI. MINIMAL COUGH AND GAG REFLEX NOTED. RR REMAINS MID 40'S, VITAL SIGNS OTHERWISE STABLE. OAKLEY REMAINS IN PLACE WITH DARK YELLOW URINE OUTPUT NOTED. RECTAL TUBE REMAINS IN PLACE WITH SMALL AMOUNT OF LIQUID BROWN OUTPUT NOTED. SBW RESTRAINTS IN PLACE. PT DAUGHTER RIC AT BEDSIDE THIS AFTERNOON, UPDATED BY DR LEUNG TO CURRENT STATUS AND PLAN OF CARE. WILL CONTINUE TO MONITOR AND REPORT OFF TO ONCOMING RN.
--- NOTE | 2022-06-23 19:00 | NUR ---
ASSUMED CARE ASSUMED CARE OF PATIENT. REMAINS INTUBATED- AC/VC 16, TV 410, PEEP 10, FIO2 60%. RR 40s. SEDATED WITH PROPOFOL AT 25MCG/KG/MIN. HEPARIN INFUSING AT 17UNITS/KG/HR (26.5ML/HR) PER PHARMACY. LEVOPHED INFUSING AT 3MCG/MIN TO MAINTAIN MAP >65. MONITOR SHOWS ST, RATE 110-120s. OG WITH VITAL HIGH PROTEIN AT GOAL RATE OF 40ML/HR. RECTAL TUBE IN PLACE- SMALL AMOUNT LIQUID BROWN STOOL. OAKLEY PATENT AND DRAINING TO GRAVITY- SCANT DARK YELLOW URINE. RIJ CL PATENT. DENISSE POWERGLIDE PATENT. DAUGHTER IS AT BEDSIDE. SEE SHIFT ASSESSMENT FOR FULL ASSESSMENT.
[2022-06-24 03:44] LABS: Hematocrit 22.8 % (37.0-53.0); Hemoglobin 7.6 g/dL (13.5-17.5); Mean Corpuscular HGB 31.1 pg (26.0-34.0); Mean Corpuscular HGB Conc 33.3 g/dL (31.5-36.5); Mean Corpuscular Volume 93 fL (80-100); Mean Platelet Volume 11.9 fL (9.1-12.4); NRBC ABSOLUTE 0.11 K/mm3 (0.00-0.02); NRBC Auto 0.6 /100 WBC (0.0-0.2); Platelet Count 152 K/mm3 (150-400); RDW Coefficient Variation 17.9 % (11.7-14.2); RDW Standard Deviation 57.2 fL (35.1-46.3); Red Blood Cell Count 2.44 M/mm3 (4.30-5.90); White Blood Cell Count 17.56 K/mm3 (4.00-11.30)
[2022-06-24 03:59] LABS: Albumin, Blood 1.1 g/dL (3.4-5.0); Bun/Creatinine Ratio 54.1 (12.0-20.0); Creatinine, Blood 0.57 mg/dL (0.60-1.20); Phosphorus, Blood 4.1 mg/dL (2.5-4.9); Potassium, Blood 3.7 mmol/L (3.5-5.5)
[2022-06-24 04:08] LABS: BAND PERCENT MAN 11 % (0-8); BASOPHILS PERCENT MAN 0 % (0-2); EOSINOPHILS ABSOLUTE MAN 0.17 K/mm3 (0.00-0.68); EOSINOPHILS PERCENT MAN 1 % (0-6); LYMPHOCYTES ABSOLUTE MAN 1.22 K/mm3 (0.84-5.20); LYMPHOCYTES PERCENT MAN 7 % (21-46); METAMYELOCYTE ABSOLUTE MAN 0.17 K/mm3 (0.00-0.00); METAMYELOCYTE PERCENT MAN 1 % (0-0); MONOCYTES PERCENT MAN 0 % (4-13); MYELOCYTE ABSOLUTE MAN 0.35 K/mm3 (0.00-0.00); MYELOCYTE PERCENT MAN 2 % (0-0); NEUTROPHILS ABSOLUTE MAN 15.62 K/mm3 (1.96-9.15); SEG NEUTROPHILS PERCENT MAN 78 % (41-73); TOTAL CELLS COUNTED 100
--- NOTE | 2022-06-24 06:07 | NUR ---
SHIFT SUMMARY NO ACUTE CHANGES DURING NOC. REMAINS INTUBATED- VENT SETTINGS UNCHANGED. SEDATED WITH PROPOFOL AT 25MCG/KG/MIN. RR 30s-40s. PT OCCASIONALLY GRIMACES WITH ORAL CARE, BUT OTHERWISE IS UNRESPONSIVE TO NOXIOUS STIMULI. NO SPONTANEOUS MOVEMENT NOTED. LEVOPHED INFUSING AT 3MCG/MIN TO MAINTAIN MAP >65. MONITOR SHOWS ST, RATE 100-120s DURING NOC. HEPARIN INFUSING NOW AT 18.5UNITS/KG/HR PER PHARMACY. NEXT PTT SCHEDULED FOR 1100. TMAX 99.6F. OG CLAMPED AT THIS TIME D/T INCREASED RESIDUALS AND NOTED TUBE FEEDING DRAINING FROM MOUTH. RECTAL TUBE IN PLACE- SCANT LIQUID BROWN STOOL. OAKLEY PATENT AND DRAINING TO GRAVITY. WILL REPORT TO ONCOMING RN WHEN AVAILABLE.
--- NOTE | 2022-06-24 07:00 | NUR ---
ASSUME CARE: I have assumed care of this patient.
[2022-06-24 08:15] LABS: Albumin/Globulin Ratio 0.3 (0.8-1.8); Bilirubin, Direct 0.3 mg/dL (0.0-0.3); Bilirubin, Indirect 0.1 mg/dL (0.1-0.7); Bilirubin, Total 0.4 mg/dL (0.1-1.0); Globulin, Blood 4.3 g/dL (2.2-4.0); Total Protein, Blood 5.4 g/dL (6.4-8.2)
--- NOTE | 2022-06-24 09:13 | NUR ---
FAMILY PHONE CALL: RN spoke with pt's daughter who has rescinded consent for bronch. She states family will be coming in later and she is considering comfort care. Palliative care RN and Dr Allan notified.
--- NOTE | 2022-06-24 16:18 | NUR ---
Pt's daughter Jennifer has made the decision to transition pt to comfort care this evening. She will be joined by her brothers and other family members prior to liberating pt from the ventilator. Both myself and Dr. Allan have stopped by to talk with Jennifer, and explain the comfort care process, from RT removing the ventilator, to use of medications as needed. She does verbalize understanding. Therapeutic visit continued with daughter reminiscing and sharing stories of memories over the years with her dad. She has not picked a home yet, but does know her dad wants to be cremated. Palliative Care will remain available, and drop off a list of mortuary.
--- NOTE | 2022-06-24 16:45 | NUR ---
RECTAL TUBE REMOVED: Rectal tube removed per daughter's request. Pt expected to transition to comfort care once family arrives this evening.
--- NOTE | 2022-06-24 19:17 | NUR ---
SHIFT SUMMARY: Family at bedside requesting comfort care. Orders changed to comfort care order set. Report given to night shift supervisor RN.
--- NOTE | 2022-06-24 19:55 | NUR ---
PT CODE STATUS CHANGED TO COMFORT CARE AT THE BEGINNING OF THE SHIFT. PT WAS PREMEDICATED PER MD ORDERS AND EXUTBATED BY RT AT 1945. PT APPEARS COMFORTABLE AT THIS TIME. SEVERAL FAMILY MEMBERS ARE AT BEDSIDE. NO NEEDS ARE EXPRESSED BY THE FAMILY CURRENTLY AND INSTRUCTION GIVEN FOR THEM TO NOTIFY ME OF ANY QUESTIONS NEEDS OR CONCERNS FOR THEM OR FOR THE PATIENT.
--- NOTE | 2022-06-24 20:46 | NUR ---
FAMILY UPDATED ON PT CONDITION. ANSWERED QUESTIONS APPROPRIATE.
== END 2022-06-24 23:53 | DRG 438 ==
LOC: ER 06:26 → MEDS 06:27 → ICUW 06-12 10:19 → MEDS 06-12 10:19 → ICUW 06-12 10:19 → MEDS 06-12 10:20 → ICUW 06-16 09:06
PROVIDERS: Family Medicine; Internal Medicine Critical Care Medicine; Nurse Practitioner Acute Care; Physician Assistant; Student in an Organized Health Care Education/Training Program; ADMIT Internal Medicine
PROC: HZ2ZZZZ Detoxification Services for Substance Abuse Treatment (ICD-10-PCS; principal; 2022-06-12)
PROC: 3E033XZ Introduction of Vasopressor into Peripheral Vein, Percutaneous Approach (ICD-10-PCS; 2022-06-12)
PROC: 3E03329 Introduction of Other Anti-infective into Peripheral Vein, Percutaneous Approach (ICD-10-PCS; 2022-06-12)
PROC: 0W3P8ZZ Control Bleeding in Gastrointestinal Tract, Via Natural or Artificial Opening Endoscopic (ICD-10-PCS; 2022-06-13)
PROC: 02HV33Z Insertion of Infusion Device into Superior Vena Cava, Percutaneous Approach (ICD-10-PCS; 2022-06-16)
PROC: 30233N1 Transfusion of Nonautologous Red Blood Cells into Peripheral Vein, Percutaneous Approach (ICD-10-PCS; 2022-06-16)
PROC: 0BH18EZ Insertion of Endotracheal Airway into Trachea, Via Natural or Artificial Opening Endoscopic (ICD-10-PCS; 2022-06-16)
PROC: 0DJ08ZZ Inspection of Upper Intestinal Tract, Via Natural or Artificial Opening Endoscopic (ICD-10-PCS; 2022-06-19)
DX: K85.20 Alcohol induced acute pancreatitis without necrosis or infection (principal); A41.9 Sepsis, unspecified organism; G92.8 Other toxic encephalopathy; J69.0 Pneumonitis due to inhalation of food and vomit; K26.4 Chronic or unspecified duodenal ulcer with hemorrhage; J80 Acute respiratory distress syndrome; I26.99 Other pulmonary embolism without acute cor pulmonale; I82.411 Acute embolism and thrombosis of right femoral vein; K86.3 Pseudocyst of pancreas; J91.8 Pleural effusion in other conditions classified elsewhere; R18.8 Other ascites; R57.9 Shock, unspecified; Z51.5 Encounter for palliative care; Z28.21 Immunization not carried out because of patient refusal; F17.210 Nicotine dependence, cigarettes, uncomplicated; E83.42 Hypomagnesemia; K76.0 Fatty (change of) liver, not elsewhere classified; E87.6 Hypokalemia; E83.51 Hypocalcemia; R73.9 Hyperglycemia, unspecified; K86.1 Other chronic pancreatitis; F10.20 Alcohol dependence, uncomplicated; E87.5 Hyperkalemia; Z79.899 Other long term (current) drug therapy
CPT/HCPCS: 31500; 36415; 36430; 36556; 70030; 70450; 71045; 71046; 71260; 74176; 74177; 74181; 80048; 80053; 80069; 82140; 82248; 82270; 82330; 82803; 82947; 83036; 83605; 83690; 83735; 83880; 84100; 84132; 84478; 84484; 85014; 85018; 85025; 85610; 85730; 86850; 86900; 86901; 86923; 87040; 87070; 87106; 87205; 87338; 93005; 93010; 93306; 93971; 94002; 94003; 94640; 94664; 94667; 94668; 94760; 94762; 96361; 96365; 96366; 96367; 96368; 96375; 96376; 97110; 97161; 97166; 97530; 99285-25; A9270; C1751; C9113; G0378; J0171; J0295; J1170; J1430; J1644; J1650; J1815; J1940; J2001; J2060; J2270; J2405; J2543; J2704; J2765; J3010; J3411; J3475; J3480; J7030; J7040; J7050; J7060; J7120; P9016; P9047; Q9967